=== PATIENT | male | born 1955 | race Hispanic/Latino ===

== ENCOUNTER 2021-02-22 20:39 | Inpatient (IN) | payer MEDICAID ==
--- NOTE | 2021-02-22 21:11 | Emergency Department Report ---
ED General Adult HPI - General Chief complaint: Alcohol Stated complaint: ETOH Time Seen by Provider: 02/22/21 21:05 Source: patient, EMS ( EMS documentation not available at time of chart dictation ), RN notes reviewed Mode of arrival: Stretcher Limitations: Altered Mental Status, Other (Alcohol intoxication) - History of Present Illness Initial comments: The patient was evaluated in the emergency department for symptoms described in the history of present illness. He/she was evaluated in the context of the global COVID-19 pandemic, which necessitated consideration that the patient might be at risk for infection with the virus that causes COVID-19. Institutional protocols and algorithms that pertain to the evaluation of patients at risk for COVID-19 are in a state of rapid change based on information released by regulatory bodies including the CDC and federal and state organizations. These policies and algorithms were followed during the patient's care in the emergency department. Please note that these policies, procedures and recommendations changed on a rapid basis. Mr. Herrera is a 65-year-old gentleman. The details of his past medical history not known to myself. History is obtained from nursing team, who obtained report from EMS. EMS documentation is unavailable at this time for my review. The patient is brought to the hospital by emergency medical services, with an EMS articulated complaint to nursing team of alcohol intoxication. The patient himself is intoxicated. He tells me that he has abdominal pain, and chest pressure. He is not able to describe the qualitative nature of her symptoms, exacerbating factors, relieving factors or aggravating factors. He is not sure if he fell or hit his head. The patient is not accompanied by friends or family at this time for collateral information or additional information. EMS provided a phone number to nursing team; [phone]. Call this number, and it is disconnected. The patient is not accompanied by friends or family at this time for collateral information or additional information. He is currently intoxicated, and cannot further elaborate on the nature of his symptoms. His last known well time is not explicitly known. The patient indicates that he is not homicidal or suicidal. -: unknown Location: chest, abdomen Consistency: other Improves with: other Worsens with: other Associated Symptoms: other - Related Data Home Medications Medication Instructions Recorded Confirmed Last Taken Methadone HCl [Methadone Intensol] 30 mg PO QDAY 02/23/21 02/23/21 02/22/21 Previous Rx's Medication Instructions Recorded Last Taken Type AtorvaSTATin [Lipitor] 40 mg PO QHS #30 02/25/21 Unknown Rx FLUoxetine HCL [Fluoxetine HCl] 10 mg PO QDAY #30 cap 02/25/21 Unknown Rx Furosemide [Lasix TAB] 40 mg PO QDAY #30 02/25/21 Unknown Rx Methadone [Dolophine] 30 mg PO DAILY #5 tablet 02/25/21 Unknown Rx Metoprolol Xl [Metoprolol 100 mg PO QDAY #30 02/25/21 Unknown Rx SUCCINATE ER TAB] Tamsulosin [Flomax] 0.4 mg PO QDAY #30 cap 02/25/21 Unknown Rx chlordiazePOXIDE [Librium] 25 mg PO HS #42 cap 02/25/21 Unknown Rx Allergies Allergy/AdvReac Type Severity Reaction Status Date / Time No Known Allergies Allergy Verified 02/22/21 20:53 ED Review of Systems ROS: Stated complaint: ETOH Other details as noted in HPI Comment: Unobtainable due to pts medical conditions Gastrointestinal: abdominal pain ED Past Medical Hx - Past Medical History Hx Hypertension: Yes Additional medical history: heart murmur, alcohol abuse - Medications Home Medications: Home Medications Medication Instructions Recorded Confirmed Last Taken Type Methadone HCl [Methadone Intensol] 30 mg PO QDAY 02/23/21 02/23/21 02/22/21 History AtorvaSTATin [Lipitor] 40 mg PO QHS #30 02/25/21 Unknown Rx FLUoxetine HCL [Fluoxetine HCl] 10 mg PO QDAY #30 cap 02/25/21 Unknown Rx Furosemide [Lasix TAB] 40 mg PO QDAY #30 02/25/21 Unknown Rx Methadone [Dolophine] 30 mg PO DAILY #5 tablet 02/25/21 Unknown Rx Metoprolol Xl [Metoprolol 100 mg PO QDAY #30 02/25/21 Unknown Rx SUCCINATE ER TAB] Tamsulosin [Flomax] 0.4 mg PO QDAY #30 cap 02/25/21 Unknown Rx chlordiazePOXIDE [Librium] 25 mg PO HS #42 cap 02/25/21 Unknown Rx ED Physical Exam - General Limitations: Altered Mental Status General appearance: appears intoxicated, obese - Head Head exam: Present: atraumatic, normocephalic - Eye Eye exam: Present: normal appearance, EOMI. Absent: nystagmus - ENT ENT exam: Present: normal exam, normal orophraynx, mucous membranes moist, normal external ear exam - Neck Neck exam: Present: normal inspection, full ROM. Absent: tenderness, meningismus - Respiratory Respiratory exam: Present: normal lung sounds bilaterally. Absent: respiratory distress, wheezes, rales, rhonchi, stridor, decreased breath sounds - Cardiovascular Cardiovascular Exam: Present: regular rate, normal rhythm, normal heart sounds. Absent: bradycardia, tachycardia, irregular rhythm, systolic murmur, diastolic murmur, rubs, gallop - GI/Abdominal GI/Abdominal exam: Present: soft, tenderness, other (There is epigastric tenderness.). Absent: distended, guarding, rebound, rigid, pulsatile mass - Rectal Rectal exam: Present: deferred - Extremities Exam Extremities exam: Present: normal inspection, full ROM, other (2+ pulses noted in the bilateral upper and lower extremities. There is no palpable cord. negative Homans sign. Muscular compartments are soft. The pelvis is stable.). Absent: pedal edema, calf tenderness - Back Exam Back exam: Present: normal inspection, full ROM. Absent: tenderness, CVA tenderness (R), CVA tenderness (L), paraspinal tenderness, vertebral tenderness - Neurological Exam Neurological exam: Present: altered, other (There is no facial droop. The tongue is midline. EOMI. 5 out of 5 strength in 4 extremities. Sensation is intact to light touch in 4 extremities.) - Psychiatric Psychiatric exam: Absent: homicidal ideation, suicidal ideation - Skin Skin exam: Present: warm, dry, intact, normal color. Absent: rash ED Course Vital Signs 02/22/21 02/22/21 02/22/21 20:54 23:23 23:26 Temperature 98.5 F Pulse Rate 77 63 Respiratory 16 15 Rate Blood Pressure Blood Pressure 120/70 125/63 [Left] O2 Sat by Pulse 92 98 98 Oximetry 02/22/21 02/22/21 02/22/21 23:27 23:29 23:31 Temperature Pulse Rate 63 62 68 Respiratory 13 17 18 Rate Blood Pressure 125/63 125/63 125/63 Blood Pressure [Left] O2 Sat by Pulse Oximetry 02/23/21 02/23/21 02/23/21 00:01 00:31 01:11 Temperature Pulse Rate 85 88 74 Respiratory 18 18 18 Rate Blood Pressure 114/54 114/54 114/54 Blood Pressure [Left] O2 Sat by Pulse Oximetry 02/23/21 02/23/21 02/23/21 01:41 02:01 02:31 Temperature Pulse Rate 80 64 66 Respiratory 11 L 16 13 Rate Blood Pressure 131/53 137/49 Blood Pressure [Left] O2 Sat by Pulse 98 97 98 Oximetry 02/23/21 02/23/21 02/23/21 03:01 03:31 04:01 Temperature Pulse Rate 81 Respiratory 29 H 36 H 19 Rate Blood Pressure 123/51 140/67 121/50 Blood Pressure [Left] O2 Sat by Pulse 99 95 96 Oximetry 02/23/21 02/23/21 02/23/21 05:01 05:14 05:30 Temperature Pulse Rate 74 Respiratory 16 Rate Blood Pressure 124/47 124/47 Blood Pressure 124/47 [Left] O2 Sat by Pulse 97 95 94 Oximetry 02/23/21 02/23/21 02/23/21 05:48 06:01 07:38 Temperature Pulse Rate Respiratory Rate Blood Pressure 128/49 128/49 139/65 Blood Pressure [Left] O2 Sat by Pulse Oximetry 02/23/21 02/23/21 02/23/21 07:40 07:41 07:51 Temperature Pulse Rate 74 Respiratory 16 Rate Blood Pressure 139/65 139/88 Blood Pressure 139/65 [Left] O2 Sat by Pulse 96 96 97 Oximetry 02/23/21 02/23/21 02/23/21 08:00 08:37 08:41 Temperature Pulse Rate Respiratory Rate Blood Pressure 139/65 139/88 139/88 Blood Pressure [Left] O2 Sat by Pulse 95 93 94 Oximetry 02/23/21 02/23/21 02/23/21 08:51 09:00 09:16 Temperature Pulse Rate Respiratory Rate Blood Pressure 128/49 139/88 139/88 Blood Pressure [Left] O2 Sat by Pulse 98 93 82 L Oximetry - Reevaluation(s) Reevaluation #1: 02/23/21 00:54 Differential diagnosis, including but not limited to: Alcohol intoxication, intracranial injury, cervical spine injury, dehydration, electrolyte derangement, dementia, GERD, gastritis, hiatal hernia, pneumonia, coronary artery disease, pancreatitis colitis, diverticulitis, renal colic Assessment and plan: 65-year-old gentleman, who was afebrile, with reassuring vital signs, who is obviously intoxicated, initially resting comfortably on his side, not in any acute distress. Patient is a poor historian, initially complaining of chest discomfort, which is poorly characterized, and admits to some abdominal pain. A few hours later, he is resting comfortably, and denies any physical pain. Initial laboratory studies are significant for mild dehydration/hypernatremia, hypokalemia, and elevated blood alcohol level. When I requestion the patient, he states he is not having any physical pain. Called up listed phone number, however, the number is disconnected. At this point time, were not able to obtain collateral information, such as the details of the patient's past medical history, or current medications. We will obtain CT scan of the brain and cervical spine, CT scan of the abdomen pelvis. We will obtain urinalysis, repeat troponin, repeat EKG. We will replete the patient's potassium. Anticipate that the patient should be sober in a few hours, and hopefully be able to obtain more information. Reevaluation #2: 02/23/21 00:56 The patient is not currently tachycardic, tachypneic or hypoxic, I do not have a high suspicion for pulmonary embolism or thromboembolism at this time. 02/23/21 01:23 EKG #2 interpreted at 01: 1 3 Motion artifact, sinus rhythm, rate 64 bpm. Normal axis, QTC 446 ms. Abnormal EKG. Not a STEMI 02/23/21 04:25 Patient now more awake and alert. He tells me that he is from [facility]. He is able to provide me with some of his medications. It appears that he has a history of hypertension, high cholesterol, tobacco use. He also takes Eliquis, and he reports that he has a history of "blood clot in the gage ngs." He also smokes tobacco. In addition, nursing team has noted that he is somewhat hypoxic occasionally, requiring supplemental oxygen. Nuclear medicine study ordered. He will be admitted to the medical service for further evaluation for chest pain, hypoxia, alcohol intoxication, hypokalemia, and supportive care. Defer to the inpatient team to follow-up on nuclear medicine study. Dr Daryl Oseguera to admit to IMS 02/23/21 04:26 02/23/21 04:58 02/26/21 19:41 My colleague graciously followed up on CT scans. The patient was admitted. ED Medical Decision Making - Lab Data Result diagrams: 02/24/21 04:40 02/24/21 04:40 Vital Signs 02/22/21 02/22/21 02/22/21 20:54 23:23 23:26 Temperature 98.5 F Pulse Rate 77 63 Respiratory 16 15 Rate Blood Pressure Blood Pressure 120/70 125/63 [Left] O2 Sat by Pulse 92 98 98 Oximetry 02/22/21 02/22/21 02/22/21 23:27 23:29 23:31 Temperature Pulse Rate 63 62 68 Respiratory 13 17 18 Rate Blood Pressure 125/63 125/63 125/63 Blood Pressure [Left] O2 Sat by Pulse Oximetry 02/23/21 02/23/21 00:01 00:31 Temperature Pulse Rate 85 88 Respiratory 18 18 Rate Blood Pressure 114/54 114/54 Blood Pressure [Left] O2 Sat by Pulse Oximetry Lab Results 02/22/21 02/22/21 02/22/21 Range/Units 21:31 21:31 21:31 WBC 5.4 (4.5-11.0) K/mm3 RBC 4.07 (3.65-5.03) M/mm3 Hgb 12.3 (11.8-15.2) gm/dl Hct 36.8 (35.5-45.6) % MCV 90 (84-94) fl MCH 30 (28-32) pg MCHC 33 (32-34) % RDW 21.0 H (13.2-15.2) % Plt Count 161 (140-440) K/mm3 Lymph % (Auto) 30.8 (13.4-35.0) % [place] % (Auto) 6.0 (0.0-7.3) % Eos % (Auto) 3.6 (0.0-4.3) % Baso % (Auto) 0.5 (0.0-1.8) % Lymph # (Auto) 1.7 (1.2-5.4) K/mm3 [place] # (Auto) 0.3 (0.0-0.8) K/mm3 Eos # (Auto) 0.2 (0.0-0.4) K/mm3 Baso # (Auto) 0.0 (0.0-0.1) K/mm3 Seg Neutrophils % 59.1 (40.0-70.0) % Seg Neutrophils # 3.2 (1.8-7.7) K/mm3 PT 13.4 (12.2-14.9) Sec. INR 0.92 (0.87-1.13) Sodium 146 H (137-145) mmol/L Potassium 3.3 L (3.6-5.0) mmol/L Chloride 106.0 (98-107) mmol/L Carbon Dioxide 30 (22-30) mmol/L Anion Gap 13 mmol/L BUN 8 L (9-20) mg/dL Creatinine 0.6 L (0.8-1.3) mg/dL Estimated GFR > 60 ml/min BUN/Creatinine Ratio 13 % Glucose 101 H (75-100) mg/dL Calcium 8.1 L (8.4-10.2) mg/dL Magnesium (1.7-2.3) mg/dL Total Bilirubin 0.40 (0.1-1.2) mg/dL AST 32 (5-40) units/L ALT 26 (7-56) units/L Alkaline Phosphatase 77 (35-129) units/L Total Creatine Kinase (55-170) units/L Troponin T < 0.010 (0.00-0.029) ng/mL Total Protein 6.1 L (6.3-8.2) g/dL Albumin 3.3 L (3.9-5) g/dL Albumin/Globulin Ratio 1.2 % Lipase (13-60) units/L Salicylates (2.8-20.0) mg/dL Acetaminophen (10.0-30.0) ug/mL Plasma/Serum Alcohol (0-0.07) % 02/22/21 02/22/21 02/22/21 Range/Units 21:31 21:31 21:31 WBC (4.5-11.0) K/mm3 RBC (3.65-5.03) M/mm3 Hgb (11.8-15.2) gm/dl Hct (35.5-45.6) % MCV (84-94) fl MCH (28-32) pg MCHC (32-34) % RDW (13.2-15.2) % Plt Count (140-440) K/mm3 Lymph % (Auto) (13.4-35.0) % [place] % (Auto) (0.0-7.3) % Eos % (Auto) (0.0-4.3) % Baso % (Auto) (0.0-1.8) % Lymph # (Auto) (1.2-5.4) K/mm3 [place] # (Auto) (0.0-0.8) K/mm3 Eos # (Auto) (0.0-0.4) K/mm3 Baso # (Auto) (0.0-0.1) K/mm3 Seg Neutrophils % (40.0-70.0) % Seg Neutrophils # (1.8-7.7) K/mm3 PT (12.2-14.9) Sec. INR (0.87-1.13) Sodium (137-145) mmol/L Potassium (3.6-5.0) mmol/L Chloride (98-107) mmol/L Carbon Dioxide (22-30) mmol/L Anion Gap mmol/L BUN (9-20) mg/dL Creatinine (0.8-1.3) mg/dL Estimated GFR ml/min BUN/Creatinine Ratio % Glucose (75-100) mg/dL Calcium (8.4-10.2) mg/dL Magnesium 1.70 (1.7-2.3) mg/dL Total Bilirubin (0.1-1.2) mg/dL AST (5-40) units/L ALT (7-56) units/L Alkaline Phosphatase (35-129) units/L Total Creatine Kinase 65 (55-170) units/L Troponin T (0.00-0.029) ng/mL Total Protein (6.3-8.2) g/dL Albumin (3.9-5) g/dL Albumin/Globulin Ratio % Lipase 21 (13-60) units/L Salicylates < 0.3 L (2.8-20.0) mg/dL Acetaminophen (10.0-30.0) ug/mL Plasma/Serum Alcohol 0.23 H (0-0.07) % 02/22/ Range/Units 21:31 WBC (4.5-11.0) K/mm3 RBC (3.65-5.03) M/mm3 Hgb (11.8-15.2) gm/dl Hct (35.5-45.6) % MCV (84-94) fl MCH (28-32) pg MCHC (32-34) % RDW (13.2-15.2) % Plt Count (140-440) K/mm3 Lymph % (Auto) (13.4-35.0) % [place] % (Auto) (0.0-7.3) % Eos % (Auto) (0.0-4.3) % Baso % (Auto) (0.0-1.8) % Lymph # (Auto) (1.2-5.4) K/mm3 [place] # (Auto) (0.0-0.8) K/mm3 Eos # (Auto) (0.0-0.4) K/mm3 Baso # (Auto) (0.0-0.1) K/mm3 Seg Neutrophils % (40.0-70.0) % Seg Neutrophils # (1.8-7.7) K/mm3 PT (12.2-14.9) Sec. INR (0.87-1.13) Sodium (137-145) mmol/L Potassium (3.6-5.0) mmol/L Chloride (98-107) mmol/L Carbon Dioxide (22-30) mmol/L Anion Gap mmol/L BUN (9-20) mg/dL Creatinine (0.8-1.3) mg/dL Estimated GFR ml/min BUN/Creatinine Ratio % Glucose (75-100) mg/dL Calcium (8.4-10.2) mg/dL Magnesium (1.7-2.3) mg/dL Total Bilirubin (0.1-1.2) mg/dL AST (5-40) units/L ALT (7-56) units/L Alkaline Phosphatase (35-129) units/L Total Creatine Kinase (55-170) units/L Troponin T (0.00-0.029) ng/mL Total Protein (6.3-8.2) g/dL Albumin (3.9-5) g/dL Albumin/Globulin Ratio % Lipase (13-60) units/L Salicylates (2.8-20.0) mg/dL Acetaminophen 5.0 L (10.0-30.0) ug/mL Plasma/Serum Alcohol (0-0.07) % - EKG Data -: EKG Interpreted by Md EKG shows normal: sinus rhythm Rate: normal - EKG Data When compared to previous EKG there are: previous EKG unavailable 02/23/21 00:52 EKG #1 is interpreted at 21: 44 Sinus rhythm, rate 63 bpm. Normal axis. Unable to determine P wave axis secondary to motion artifact in aVR. QTC 4 5 6 ms. Q waves noted in the inferior leads. Left ventricular hypertrophy. This is an abnormal EKG. This is not a STEMI. There is no prior available for comparison. - Radiology Data Radiology results: pending, report reviewed, image reviewed CHEST 1 VIEW 02/22/2021 9:40 PM INDICATION / CLINICAL INFORMATION: Alcohol Intoxication chest pain. COMPARISON: None available. FINDINGS: SUPPORT DEVICES: None. HEART / MEDIASTINUM: No significant abnormality. LUNGS / PLEURA: Mild interstitial prominence suggesting chronic interstitial change No pneumothorax. ADDITIONAL FINDINGS: Old rib irregularities within the right chest wall appear chronic IMPRESSION: 1. Chronic chest wall findings on the right. Mild increased interstitial prominence in bilateral lungs Signer Name: Adrián Torres MD Signed: 02/22/2021 9:43 PM Workstation Name: [email or web address] Critical care attestation.: If time is entered above; I have spent that time in minutes in the direct care of this critically ill patient, excluding procedure time. ED Disposition Clinical Impression: Alcohol intoxication, Abdominal pain, Hypokalemia, Acute chest pain Disposition: 09 ADMITTED INPATIENT Is pt being admited?: Yes Does the pt Need Aspirin: Yes Condition: Good Heart Score - HEART Score History: Slightly suspicious EKG: Non-specific Age: 45-65 Risk factors: > 3 risk factors or hx of atherosclerotic disease (Hypertension, high cholesterol, tobacco user, obesity) Troponin: < normal limit HEART Score: 4 - EKG Read Time Time EKG Completed: 21:44 EKG Read Time: 21:44 - Critical Actions Critical Actions: 4-6 pts:12-16.6% risk of adverse cardiac event. Should be admitted
[2021-02-22] MEDS ORDERED: LORazepam 2 MG/ML VIAL IM PRN (21:19)
[2021-02-22] MEDS ORDERED: FAMOTIDINE 20 MG/2 ML INJ IV ONE (21:19)
[2021-02-22] MEDS ORDERED: LACTATED RINGERS 1,000 ML IV ONE (21:19)
[2021-02-22] MEDS ORDERED: HALOPERIDOL LACTATE 5 MG/1 ML INJ IM PRN (21:19)
[2021-02-22 22:02] LABS: Basophils % (Auto) 0.5 % (0.0-1.8); Eosinophils # (Auto) 0.2 K/mm3 (0.0-0.4); Eosinophils % (Auto) 3.6 % (0.0-4.3); Hematocrit 36.8 % (35.5-45.6); Hemoglobin 12.3 gm/dl (11.8-15.2); Lymphocytes # (Auto) 1.7 K/mm3 (1.2-5.4); Lymphocytes % (Auto) 30.8 % (13.4-35.0); Mean Corpuscular HGB Conc 33 % (32-34); Mean Corpuscular Volume 90 fl (84-94); Monocytes # (Auto) 0.3 K/mm3 (0.0-0.8); Platelet Count 161 K/mm3 (140-440); Red Blood Count 4.07 M/mm3 (3.65-5.03)
[2021-02-22 22:16] LABS: INR 0.92 (0.87-1.13)
[2021-02-22 22:23] LABS: Alanine Aminotransferase 26 units/L (7-56); Albumin 3.3 g/dL (3.9-5); Blood Urea Nitrogen 8 mg/dL (9-20); Calcium 8.1 mg/dL (8.4-10.2); Hemolysis Index 2
[2021-02-22 22:26] LABS: BUN/Creatinine Ratio 13
--- NOTE | 2021-02-22 22:48 | XRay Report ---
CHEST 1 VIEW 02/22/2021 9:40 PM INDICATION / CLINICAL INFORMATION: Alcohol Intoxication chest pain. COMPARISON: None available. FINDINGS: SUPPORT DEVICES: None. HEART / MEDIASTINUM: No significant abnormality. LUNGS / PLEURA: Mild interstitial prominence suggesting chronic interstitial change No pneumothorax. ADDITIONAL FINDINGS: Old rib irregularities within the right chest wall appear chronic IMPRESSION: 1. Chronic chest wall findings on the right. Mild increased interstitial prominence in bilateral lung s Signer Name: Adrián Torres MD Signed: 02/22/2021 10:43 PM Workstation Name: [id number]
[2021-02-23] MEDS ORDERED: POTASSIUM CHLORIDE ER 20 MEQ TAB PO ONE (00:46)
[2021-02-23] MEDS ORDERED: THIAMINE 100 MG, FOLIC ACID 1 MG, MULTIPLE VITAMIN INJ, ADULT 10 ML in SODIUM CHLORIDE ... IV ONE (00:47)
[2021-02-23 01:13] LABS: Bacteria,Urine 1+ /HPF (Negative); Bilirubin,Urine NEG (Negative); Blood,Urine NEG (Negative); Color,Urine Amber (Yellow); Mucus,Urine 1+ /HPF; Protein,Urine <15 mg/dL mg/dL (Negative)
[2021-02-23] MEDS: POTASSIUM CHLORIDE 10 MEQ 10 MEQ/100 ML BAG IV SCH ×4 (01:44→05:14)
[2021-02-23] MEDS ORDERED: ASPIRIN 81 MG TAB CHEW PO ONE (04:27)
[2021-02-23] MEDS ORDERED: ONDANSETRON 4 MG/2 ML INJ IV PRN (04:57)
[2021-02-23] MEDS ORDERED: MAGNESIUM HYDROXIDE (MOM) ORAL LIQD UDC PO PRN (04:57)
[2021-02-23] MEDS ORDERED: NITROGLYCERIN 0.4 MG TAB SUBL SL PRN (04:57)
[2021-02-23] MEDS ORDERED: SENNOSIDES 8.6 MG TAB PO PRN (04:57)
[2021-02-23] MEDS ORDERED: ACETAMINOPHEN 325 MG TAB PO PRN ×2 (04:57)
[2021-02-23] MEDS ORDERED: METOCLOPRAMIDE 10 MG/2 ML INJ IV PRN (04:57)
--- NOTE | 2021-02-23 04:57 | History and Physical Report ---
History of Present Illness Date of examination: 02/23/21 Date of admission: 02/23/21 Chief complaint: chest pain History of present illness: This is a 65-year-old male patient seen in the ED and baseline. The patient is brought to the hospital by emergency medical services, with with chief complaints of chest pain and alcohol intoxication. Patient is confused and not able to describe his symptoms. He is not sure if he fell or hit his head. The patient is not accompanied by friends or family at this time for collateral information or additional information.Chest x-ray done mild increased interstitial prominence in bilateral lungs. Lab work showed low sodium and potassium level. Patient started on banana bag/IV hydration Past History Past Medical History: diabetes, hypertension, hyperlipidemia Past Surgical History: No surgical history Social history: alcohol abuse, full code Family history: no significant family history (Patient is confused unable to assess) Medications and Allergies Allergies Allergy/AdvReac Type Severity Reaction Status Date / Time No Known Allergies Allergy Verified 02/22/21 20:53 Active Meds: Active Medications Haloperidol Lactate (Haloperidol Lactate 5 Mg/1 Ml Inj) 5 mg IM Q6HR PRN PRN Reason: Agitation Potassium Chloride (Kcl 10meq/100ml) 10 meq in 100 mls @ 100 mls/hr IV Q1H CHERISE Stop: 02/23/21 04:59 Last Admin: 02/23/21 03:49 Dose: 100 mls/hr Documented by: Lorazepam (Lorazepam 2 Mg/Ml Vial) 2 mg IM Q4HR PRN PRN Reason: Agitation Review of Systems Constitutional: fatigue, weakness Ears, nose, mouth and throat: no epistaxis, no bleeding gums Cardiovascular: chest pain, high blood pressure Respiratory: cough Gastrointestinal: no BRBPR, no melena Rectal: no itching, no hemorrhoids Integumentary: no rash, no pruritis, no redness Psychiatric: anxiety, confusion Hematologic/Lymphatic: no easy bruising, no easy bleeding, no lymphadenopathy, no lymphedema Allergic/Immunologic: no urticaria Exam - Constitutional Vitals: Temp Pulse Resp BP Pulse Ox 98.5 F 66 13 137/49 98 02/22/21 20:54 02/23/21 02:31 02/23/21 02:31 02/23/21 02:31 02/23/21 02:31 General appearance: Present: mild distress, well-nourished - EENT Eyes: Present: PERRL ENT: hearing intact, clear oral mucosa - Neck Neck: Present: supple, normal ROM - Respiratory Respiratory effort: normal Respiratory: bilateral: CTA - Cardiovascular Heart Sounds: Present: S1 & S2. Absent: rub, click - Extremities Extremities: pulses symmetrical, No edema Peripheral Pulses: within normal limits - Abdominal General gastrointestinal: Present: soft, non-tender, non-distended, normal bowel sounds Male genitourinary: Present: normal - Integumentary Integumentary: Present: clear, warm, dry - Musculoskeletal Musculoskeletal: gait normal, strength equal bilaterally - Psychiatric Psychiatric: appropriate mood/affect, intact judgment & insight, cooperative - Neurologic Neurologic: CNII-XII intact, moves all extremities - Allied Health Allied health notes reviewed: nursing HEART Score - HEART Score EKG: Non-specific Age: 45-65 Risk factors: > 3 risk factors or hx of atherosclerotic disease (Hypertension, high cholesterol, tobacco user, obesity) Troponin: Troponin T < 0.010 ng/mL (0.00-0.029) 02/23/21 01:40 Troponin: < normal limit - Critical Actions Critical Actions: 4-6 pts:12-16.6% risk of adverse cardiac event. Should be admitted Results - Labs CBC & Chem 7: 02/23/21 05:08 02/22/21 21:31 Labs: Abnormal lab results 02/22/21 02/22/21 02/22/21 Range/Units 21:31 21:31 21:31 RDW 21.0 H (13.2-15.2) % Sodium 146 H (137-145) mmol/L Potassium 3.3 L (3.6-5.0) mmol/L BUN 8 L (9-20) mg/dL Creatinine 0.6 L (0.8-1.3) mg/dL Glucose 101 H (75-100) mg/dL Calcium 8.1 L (8.4-10.2) mg/dL Total Protein 6.1 L (6.3-8.2) g/dL Albumin 3.3 L (3.9-5) g/dL Salicylates (2.8-20.0) mg/dL Acetaminophen (10.0-30.0) ug/mL Plasma/Serum Alcohol 0.23 H (0-0.07) % 02/22/21 02/22/21 Range/Units 21:31 21:31 RDW (13.2-15.2) % Sodium (137-145) mmol/L Potassium (3.6-5.0) mmol/L BUN (9-20) mg/dL Creatinine (0.8-1.3) mg/dL Glucose (75-100) mg/dL Calcium (8.4-10.2) mg/dL Total Protein (6.3-8.2) g/dL Albumin (3.9-5) g/dL Salicylates < 0.3 L (2.8-20.0) mg/dL Acetaminophen 5.0 L (10.0-30.0) ug/mL Plasma/Serum Alcohol (0-0.07) % Assessment and Plan - Patient Problems (1) Acute chest pain Current Visit: Yes Status: Acute Plan to address problem: Questionable cause -Troponin negative Monitor cardiac enzymes Chest x-ray showed no acute finding (2) Alcohol intoxication Current Visit: Yes Status: Acute Plan to address problem: Placed on CIWA protocol Ativan as needed Safety and fall precaution at all times Aspiration precaution CT of the head result pending (3) Hypokalemia Current Visit: Yes Status: Acute Plan to address problem: Replace potassium Monitor electrolytes and replace as needed (4) D-dimer, elevated Current Visit: Yes Status: Acute Plan to address problem: Check CT of the chestrule out PE Patient came with chest pain (5) DVT prophylaxis Current Visit: Yes Status: Acute
[2021-02-23] MEDS ORDERED: SODIUM CHLORIDE 0.9% 1000 ML 1,000 ML IV SCH (05:00)
[2021-02-23 05:33] LABS: Basophils % (Auto) 0.5 % (0.0-1.8); Eosinophils # (Auto) 0.2 K/mm3 (0.0-0.4); Eosinophils % (Auto) 3.6 % (0.0-4.3); Hematocrit 35.2 % (35.5-45.6); Hemoglobin 11.4 gm/dl (11.8-15.2); Lymphocytes # (Auto) 1.4 K/mm3 (1.2-5.4); Lymphocytes % (Auto) 30.6 % (13.4-35.0); Mean Corpuscular HGB Conc 32 % (32-34); Mean Corpuscular Volume 91 fl (84-94); Monocytes # (Auto) 0.3 K/mm3 (0.0-0.8); Monocytes % (Auto) 5.8 % (0.0-7.3); Platelet Count 152 K/mm3 (140-440); Red Blood Count 3.87 M/mm3 (3.65-5.03)
[2021-02-23 05:39] LABS: Red Cell Distribution Width 20.7 % (13.2-15.2)
[2021-02-23] MEDS ORDERED: HALOPERIDOL LACTATE 5 MG/1 ML INJ IV PRN (06:57)
[2021-02-23] MEDS ORDERED: LORazepam 2 MG/ML VIAL IV PRN ×3 (07:00)
--- NOTE | 2021-02-23 07:10 | Nuclear Medicine Report ---
Perfusion only scan INDICATION: History of PTE 3 weeks prior FINDINGS: 5.5 mCi of technetium 99m MAA was administered for examination. Perfusion artifact is seen within the right lower lung however this corresponds to elevation right hemidiaphragm. Questionable p erfusional defect in the peripheral aspect of the right upper lung on posterior views corresponding t o multiple rib abnormalities. IMPRESSION: Matched defects on perfusion and chest x-ray place patient in the low probability for PTE. There is e levation right hemidiaphragm identified. Patient did have history of PE 3 weeks prior. Signer Name: Adrián Torres MD Signed: 02/23/2021 7:05 AM Workstation Name: [id number]
[2021-02-23] MEDS: 1: FOLIC ACID 1 MG, MULTIPLE VITAMIN INJ, ADULT 10 ML, THIAMINE 100 MG in SODIUM CHLORID IV SCH ×2 (07:38→17:34)
--- NOTE | 2021-02-23 08:49 | Cat Scan Report ---
CT head/brain wo con INDICATION: Alcohol Intoxication. TECHNIQUE: Routine CT head without contrast. All CT scans at this location are performed using CT dose reduction for ALARA by means of automated exposure control. COMPARISON: None. FINDINGS: BRAIN / INTRACRANIAL CONTENTS: There is a tiny subdural hematoma along the left tentorium leaflet, me asuring no more than about 3 mm in greatest dimension, best seen on coronal reformats. There is also a trace subarachnoid hemorrhage over the left frontal convexity adjacent to the left precentral gyrus .. CALVARIUM/SKULL BASE/CRANIOCERVICAL JUNCTION: No evidence of fracture. ORBITS: No significant abnormality of visualized orbits. SINUSES / MASTOIDS: No significant abnormality of visualized sinuses and mastoid air cells. ADDITIONAL FINDINGS: None. IMPRESSION: 1. Trace subdural hemorrhage over the left tentorium leaflet and trace subarachnoid hemorrhage over t he left frontal convexity without brain edema or adverse mass effect. 2. Findings discussed with Dr. Zayas at 7:44 AM central time. Signer Name: Byron Mendez MD Signed: 02/23/2021 8:44 AM Workstation Name: [id number]
--- NOTE | 2021-02-23 08:49 | Cat Scan Report ---
CT CERVICAL SPINE WITHOUT CONTRAST INDICATION: Alcohol Intoxication. TECHNIQUE: Axial CT images of the spine were obtained. Sagittal and coronal reformatted images were produced. Al l CT scans at this location are performed using CT dose reduction for ALARA by means of automated exp osure control. COMPARISON: None available. FINDINGS: ACUTE FRACTURE(S) OR SUBLUXATION: None. SPINAL DEGENERATIVE CHANGES: There is mild degenerative disc disease at C5-6 and C6-7 and there is mi ld DJD in the atlantodental articulation. PARASPINAL SOFT TISSUES: No soft tissue swelling or other acute abnormalities. ADDITIONAL FINDINGS: No significant additional findings. IMPRESSION: 1. No acute fracture or subluxation in the spine in neutral position. Signer Name: Byron Mendez MD Signed: 02/23/2021 8:45 AM Workstation Name: [id number]
--- NOTE | 2021-02-23 09:02 | Cat Scan Report ---
CT chest with contrast INDICATION : Shortness of breath, elevated d-dimer. TECHNIQUE: 100 mL of intravenous contrast administered. All CT scans at this location are performed using CT dose reduction for ALARA by means of automated exposure control. COMPARISON: 02/23/2021, 02/22/2021. FINDINGS: Lungs are clear without evidence of focal pulmonary consolidation or edema. Suboptimal opacification of the pulmonary arteries limits evaluation for pulmonary embolism. Within t hese limitations, there is no evidence of central or lobar filling defect to suggest the presence of pulmonary embolism. No discrete pulmonary mass or nodule. No pleural effusion or pneumothorax. Heart is within normal limits in terms of size. No evidence of pericardial effusion. No mediastinal o r axillary lymphadenopathy. Osseous structures show no evidence acute fracture or aggressive osseous destructive lesion. Remote h ealed fracture of the left clavicle and multiple bilateral ribs. Mild bilateral gynecomastia is incidentally noted. There is asymmetric elevation of the right hemidia phragm with right basilar scarring. Please see dedicated CT of the abdomen and pelvis for findings below the level of the diaphragm. IMPRESSION: No evidence of central or lobar filling defect to suggest the presence of pulmonary embolism. Subopti mal opacification of the pulmonary arteries does limit evaluation of more distal emboli. No acute findings in the chest. Asymmetric elevation of the right hemidiaphragm with right basilar scarring. Signer Name: Keith Johnson MD Signed: 02/23/2021 8:57 AM Workstation Name: [id number]
--- NOTE | 2021-02-23 09:19 | Cat Scan Report ---
CT ABDOMEN AND PELVIS WITH CONTRAST INDICATION / CLINICAL INFORMATION: E.T.O.H. intoxication, abd pain 100 ml omni 300. TECHNIQUE: Axial CT images were obtained through the abdomen and pelvis after 100 cc of Omnipaque [address] scans at this location are performed using CT dose reduction for ALARA by means of automated exposure control. COMPARISON: None available. FINDINGS: LOWER CHEST: There is elevation of the right hemidiaphragm. LIVER: There is fatty infiltration of the liver. GALLBLADDER: No significant abnormality. BILE DUCTS: There is dilatation of the common bile duct. Common bile duct measures approximately 9 mm in diameter. There is no intrahepatic biliary dilatation. PANCREAS: No significant abnormality. SPLEEN: Spleen is upper limits of normal in size. No focal splenic lesions are seen. ADRENALS: Calcifications are noted in the right adrenal gland. There is a 1.8 cm right adrenal nodule . RIGHT KIDNEY / URETER: No significant abnormality. LEFT KIDNEY / URETER: No significant abnormality. STOMACH / SMALL BOWEL: No significant abnormality. COLON: No significant abnormality. APPENDIX: No significant abnormality. PERITONEUM: No free fluid. No free air. No fluid collection. LYMPH NODES: No significant adenopathy. AORTA / ARTERIES: Mild atherosclerotic calcification without acute abnormality. There is more promine nt atherosclerotic calcification in the proximal right renal artery. IVC / VEINS: No significant abnormality. URINARY BLADDER: No significant abnormality. REPRODUCTIVE ORGANS: No significant abnormality. ADDITIONAL FINDINGS: None. SKELETAL SYSTEM: No acute abnormality IMPRESSION: 1. There is no obstruction, inflammation, or free air. 2. There is fatty infiltration of the liver. 3. There is dilatation of the common bile duct. The cause is not determined by this exam. 4. There is a 1.8 cm right adrenal nodule. There are calcifications noted in the right adrenal gland. 5. There is relatively dense prominent atherosclerotic calcification in the proximal right renal marta ry. This is likely hemodynamically significant. Signer Name: Torito Ness MD Signed: 02/23/2021 9:15 AM Workstation Name: [id number]
--- NOTE | 2021-02-23 09:29 | Event Note ---
Date: 02/23/21 I was called by the radiologist following the CT scan of the brain order on Mr. Herrera by my colleague Dr. Vera. CT scan of the brain showed trace subdural hematoma over the left tentorium. Patient examined by me. Patient is alert, oriented x3 in no acute distress. GCS is 15. Patient is already being admitted to the hospital. I discussed the patient with Dr. Florentino Salinas, neurosurgeon on-call. He advised to order a CT scan of the brain in 6-hour from the initial 1 and he will evaluate the patient. I discussed the patient with Dr. Morgan, hospitalist following the patient.
--- NOTE | 2021-02-23 11:11 | Event Note ---
Date: 02/23/21 This is a follow-up from an admission earlier this morning. Patient seen and examined. We will continue to plan as outlined in H&P. Total visit time equals 32 minutes with greater than 50% spent on coordination of care and counseling.
--- NOTE | 2021-02-23 11:52 | Consultation ---
History of Present Illness Consult date: 02/23/21 Consult reason: chest pain History of present illness: This is a 65-year old male who was brought to this hospital with abdominal pain and alcohol intoxication. On presentation his alcohol level was 0.23. In addition, there was also report of chest pain, thus this cardiac consultation. Currently, the patient is resting in bed and denies chest pain. He denies unusual shortness of breath and palpitations. Laboratory measurement shows hypokalemia and elevated d-dimer. Serial troponin measurements were normal. An ECG is sinus rhythm with underlying artifact. Patient denies a prior cardiac history. He reports recently hospitalized at an outside hospital 3 weeks ago with acute pulmonary embolism. He takes Eliquis for oral anticoagulation. A follow up VQ scan this presentation reports low probability for PE. However, a head CT scan done reports a trace subdural hematoma. Eliquis was placed on hold and neurology consultation is pending. Past History Past Medical History: diabetes, hypertension, hyperlipidemia Past Surgical History: No surgical history Social history: alcohol abuse, full code Family history: no significant family history (Patient is confused unable to assess) Medications and Allergies Allergies Allergy/AdvReac Type Severity Reaction Status Date / Time No Known Allergies Allergy Verified 02/22/21 20:53 Home Medications Medication Instructions Recorded Confirmed Last Taken Type Apixaban [Eliquis] 5 mg PO BID 02/23/21 02/23/21 02/22/21 History Aspirin [Adult Aspirin] 81 mg PO QDAY 02/23/21 02/23/21 02/22/21 History AtorvaSTATin [Lipitor] 40 mg PO QHS 02/23/21 02/23/21 02/22/21 History FLUoxetine HCL [Fluoxetine HCl] 10 mg PO QDAY 02/23/21 02/23/21 Unknown History Furosemide [Lasix TAB] 40 mg PO QDAY 02/23/21 02/23/21 Unknown History Ibuprofen [Ibu-200] 200 mg PO PRN PRN 02/23/21 02/23/21 02/19/21 History Methadone HCl [Methadone Intensol] 30 mg PO QDAY 02/23/21 02/23/21 02/22/21 History Metoprolol Xl [Metoprolol 100 mg PO QDAY 02/23/21 02/23/21 02/22/21 History SUCCINATE ER TAB] Ondansetron [Zofran Odt] 4 mg PO Q8HR PRN 02/23/21 02/23/21 02/18/21 History Oxymetazoline HCl [12 Hour Nasal 1 spray NS HS 02/23/21 02/23/21 02/22/21 History Relief] Tamsulosin [Flomax] 0.4 mg PO QDAY 02/23/21 02/23/21 02/22/21 History chlordiazePOXIDE [Librium] 25 mg PO HS 02/23/21 02/23/21 Unknown History Active Meds: Active Medications Acetaminophen (Acetaminophen 325 Mg Tab) 650 mg PO Q4H PRN PRN Reason: Pain MILD(1-3)/Fever >100.5/ISAACS Aspirin (Aspirin Ec 325 Mg Tab) 325 mg PO QDAY [facility] Atorvastatin Calcium (Atorvastatin 40 Mg Tab) 40 mg PO QHS [facility] Haloperidol Lactate (Haloperidol Lactate 5 Mg/1 Ml Inj) 5 mg IM Q6HR PRN PRN Reason: Agitation Haloperidol Lactate (Haloperidol Lactate 5 Mg/1 Ml Inj) 5 mg IV Q1H PRN PRN Reason: Unrespon. to mult. doses BZD's Sodium Chloride (Nacl 0.9% 1000 Ml) 1,000 mls @ 42 mls/hr IV DIRECT CHERISE Folic Acid 1 mg/ Multivitamins /Minerals 10 ml/ Thiamine HCl 100 mg/ Sodium Chloride 1,000 mls @ 125 mls/hr IV .BY DURATION [facility] Last Admin: 02/23/21 07:38 Dose: 125 mls/hr Documented by: Sodium Chloride (Nacl 0.9% 1000 Ml) 1,000 mls @ 125 mls/hr IV .BY DURATION [facility] Lorazepam (Lorazepam 2 Mg/Ml Vial) 2 mg IV Q1H PRN PRN Reason: CIWA-Ar 8-15 Lorazepam (Lorazepam 2 Mg/Ml Vial) 4 mg IV Q15MIN PRN PRN Reason: CIWA-Ar >25 Lorazepam (Lorazepam 2 Mg/Ml Vial) 4 mg IV Q1H PRN PRN Reason: CIWA-Ar 16-25 Magnesium Hydroxide (Magnesium Hydroxide (Mom) Oral Liqd Udc) 30 ml PO Q4H PRN PRN Reason: Constipation Metoclopramide HCl (Metoclopramide 10 Mg/2 Ml Inj) 10 mg IV Q6H PRN PRN Reason: Nausea And Vomiting Nitroglycerin (Nitroglycerin 0.4 Mg Tab Subl) 0.4 mg SL Q5M PRN PRN Reason: Chest Pain Ondansetron HCl (Ondansetron 4 Mg/2 Ml Inj) 4 mg IV Q8H PRN PRN Reason: Nausea And Vomiting Oxycodone/Acetaminophen (Oxycodone /Acetaminophen 5-325mg Tab) 1 tab PO Q6H PRN PRN Reason: Pain, Moderate (4-6) Senna (Sennosides 8.6 Mg Tab) 8.6 mg PO Q12HR PRN PRN Reason: Constipation Sodium Chloride (Sodium Chloride 0.9% 10 Ml Flush Syringe) 10 ml IV BID CHERISE Last Admin: 02/23/21 11:44 Dose: 10 ml Documented by: Sodium Chloride (Sodium Chloride 0.9% 10 Ml Flush Syringe) 10 ml IV PRN PRN PRN Reason: LINE FLUSH Tramadol HCl (Tramadol 50 Mg Tab) 50 mg PO Q6H PRN PRN Reason: Pain, Moderate (4-6) Review of Systems Cardiovascular: no chest pain, no palpitations, no shortness of breath Physical Examination Vital Signs Temp Pulse Resp BP Pulse Ox 98.5 F 77 16 120/70 92 02/22/21 20:54 02/22/21 20:54 02/22/21 20:54 02/22/21 20:54 02/22/21 20:54 General appearance: no acute distress HEENT: Positive: PERRL Neck: Positive: trachea midline Cardiac: Positive: Reg Rate and Rhythm Lungs: Positive: Decreased Breath Sounds Neuro: Positive: Grossly Intact Results 02/23/21 05:08 02/22/21 21:31 Cardiac Enzymes 02/22/21 Range/Units 21:31 AST 32 (5-40) units/L Coagulation 02/22/21 Range/Units 21:31 PT 13.4 (12.2-14.9) Sec. INR 0.92 (0.87-1.13) CBC 02/22/21 02/23/21 Range/Units 21:31 05:08 WBC 5.4 4.5 (4.5-11.0) K/mm3 RBC 4.07 3.87 (3.65-5.03) M/mm3 Hgb 12.3 11.4 L (11.8-15.2) gm/dl Hct 36.8 35.2 L (35.5-45.6) % Plt Count 161 152 (140-440) K/mm3 Lymph # (Auto) 1.7 1.4 (1.2-5.4) K/mm3 Love # (Auto) 0.3 0.3 (0.0-0.8) K/mm3 Eos # (Auto) 0.2 0.2 (0.0-0.4) K/mm3 Baso # (Auto) 0.0 0.0 (0.0-0.1) K/mm3 Comprehensive Metabolic Panel 02/22/21 Range/Units 21:31 Sodium 146 H (137-145) mmol/L Potassium 3.3 L (3.6-5.0) mmol/L Chloride 106.0 (98-107) mmol/L Carbon Dioxide 30 (22-30) mmol/L BUN 8 L (9-20) mg/dL Creatinine 0.6 L (0.8-1.3) mg/dL Glucose 101 H (75-100) mg/dL Calcium 8.1 L (8.4-10.2) mg/dL AST 32 (5-40) units/L ALT 26 (7-56) units/L Alkaline Phosphatase 77 (35-129) units/L Total Protein 6.1 L (6.3-8.2) g/dL Albumin 3.3 L (3.9-5) g/dL
--- NOTE | 2021-02-23 13:52 | Event Note ---
Date: 02/23/21 CT scan reviewed- stable trace tentorial SDH without mass effect or MLS. There is no indication for surgical intervention. Full consult note to follow.
--- NOTE | 2021-02-23 17:19 | Cat Scan Report ---
CT head/brain wo con INDICATION: SDH. TECHNIQUE: All CT scans at this location are performed using CT dose reduction for ALARA by means of automated e xposure control. COMPARISON: Head CT done earlier today FINDINGS: There is a stable trace subdural hematoma over the left tentorium and stable trace subarachnoid hemor rhage over the left frontal convexity. There is no brain edema or adverse mass effect. IMPRESSION: 1. Stable trace subdural hemorrhage over the left tentorium and trace subarachnoid hemorrhage over th e left cerebral convexity without adverse change from prior. Signer Name: Byron Mendez MD Signed: 02/23/2021 5:14 PM Workstation Name: [id number]
--- NOTE | 2021-02-23 19:13 | Electrocardiograph Report ---
[facility] Test Date: 2021-02-22 Test Time: 21:44:43 Pat Name: VIVIANA NIEVES Department: Room: A472 1 Gender: M [employer] Mark[employer]: JACE : 1955 Requested By: SIRENA TRINIDAD Order Number: [id number] Reading MD: Carina Finney Measurements Intervals [place] Rate: 63 P: 0 VA: 77 QRS: 71 QRSD: 112 T: -4 QT: 446 QTc: 456 Interpretive Statements Sinus rhythm Possible inferior infarct, old No previous ECG available for comparison Electronically Signed On 02-23-2021 19:13:20 EDT by Carina Finney
--- NOTE | 2021-02-23 19:16 | Electrocardiograph Report ---
[facility] Test Date: 2021-02-23 Test Time: 01:13:29 Pat Name: VIVIANA NIEVES Department: Room: A472 1 Gender: M [employer]: NURSE : 1955 Requested By: SIRENA TRINIDAD Order Number: [id number] Reading MD: Carina Finney Measurements Intervals [place] Rate: 64 P: 79 [place]: 70 QRS: 61 QRSD: 113 T: 45 QT: 431 QTc: 446 Interpretive Statements Sinus rhythm Very poor quality ECG No previous ECG available for comparison Electronically Signed On 02-23-2021 19:15:51 EDT by Carina Finney
[2021-02-24] MEDS: 1: FOLIC ACID 1 MG, MULTIPLE VITAMIN INJ, ADULT 10 ML, THIAMINE 100 MG in SODIUM CHLORID IV SCH ×3 (00:59→18:10)
[2021-02-24 06:08] LABS: Basophils % (Auto) 0.4 % (0.0-1.8); Eosinophils # (Auto) 0.2 K/mm3 (0.0-0.4); Eosinophils % (Auto) 2.9 % (0.0-4.3); Hematocrit 35.7 % (35.5-45.6); Hemoglobin 11.4 gm/dl (11.8-15.2); Lymphocytes % (Auto) 18.4 % (13.4-35.0); Mean Corpuscular HGB Conc 32 % (32-34); Mean Corpuscular Volume 91 fl (84-94); Monocytes # (Auto) 0.4 K/mm3 (0.0-0.8); Monocytes % (Auto) 6.5 % (0.0-7.3); Platelet Count 148 K/mm3 (140-440); Red Blood Count 3.95 M/mm3 (3.65-5.03)
[2021-02-24 06:24] LABS: Alanine Aminotransferase 19 units/L (7-56); Albumin 3.1 g/dL (3.9-5); Blood Urea Nitrogen 6 mg/dL (9-20); Calcium 8.4 mg/dL (8.4-10.2); Hemolysis Index 3
[2021-02-24 06:29] LABS: BUN/Creatinine Ratio 12; Red Cell Distribution Width 21.5 % (13.2-15.2)
[2021-02-24] MEDS: oxyCODONE /ACETAMINOPHEN 5-325MG TAB PO PRN ×2 (09:33→19:06)
[2021-02-24] MEDS: ASPIRIN EC 325 MG TAB PO SCH (09:35)
--- NOTE | 2021-02-24 10:40 | Consultation ---
History of Present Illness Consult date: 02/24/21 Requesting physician: XIMENA CASTILLO Reason for consult: pulmonary embolism History of present illness: 65 y/o male with prior history of PE on anticoagulation admitted with subdural hematoma. Cardiology requested IMS to consult pulm as they did not feel that he is a candidate for oral anticoagulation any more given intracranial bleeding. Past History Past Medical History: diabetes, hypertension, hyperlipidemia Past Surgical History: No surgical history Social history: alcohol abuse, full code Family history: no significant family history (Patient is confused unable to assess) Medications and Allergies Allergies Allergy/AdvReac Type Severity Reaction Status Date / Time No Known Allergies Allergy Verified 02/22/21 20:53 Home Medications Medication Instructions Recorded Confirmed Last Taken Type Apixaban [Eliquis] 5 mg PO BID 02/23/21 02/23/21 02/22/21 History Aspirin [Adult Aspirin] 81 mg PO QDAY 02/23/21 02/23/21 02/22/21 History AtorvaSTATin [Lipitor] 40 mg PO QHS 02/23/21 02/23/21 02/22/21 History FLUoxetine HCL [Fluoxetine HCl] 10 mg PO QDAY 02/23/21 02/23/21 Unknown History Furosemide [Lasix TAB] 40 mg PO QDAY 02/23/21 02/23/21 Unknown History Ibuprofen [Ibu-200] 200 mg PO PRN PRN 02/23/21 02/23/21 02/19/21 History Methadone HCl [Methadone Intensol] 30 mg PO QDAY 02/23/21 02/23/21 02/22/21 History Metoprolol Xl [Metoprolol 100 mg PO QDAY 02/23/21 02/23/21 02/22/21 History SUCCINATE ER TAB] Ondansetron [Zofran Odt] 4 mg PO Q8HR PRN 02/23/21 02/23/21 02/18/21 History Oxymetazoline HCl [12 Hour Nasal 1 spray NS HS 02/23/21 02/23/21 02/22/21 History Relief] Tamsulosin [Flomax] 0.4 mg PO QDAY 02/23/21 02/23/21 02/22/21 History chlordiazePOXIDE [Librium] 25 mg PO HS 02/23/21 02/23/21 Unknown History Active Meds: Active Medications Acetaminophen (Acetaminophen 325 Mg Tab) 650 mg PO Q4H PRN PRN Reason: Pain MILD(1-3)/Fever >100.5/ISAACS Aspirin (Aspirin Ec 325 Mg Tab) 325 mg PO QDAY [facility] Last Admin: 02/24/21 09:35 Dose: 325 mg Documented by: Atorvastatin Calcium (Atorvastatin 40 Mg Tab) 40 mg PO QHS [facility] Last Admin: 02/23/21 21:09 Dose: 40 mg Documented by: Haloperidol Lactate (Haloperidol Lactate 5 Mg/1 Ml Inj) 5 mg IM Q6HR PRN PRN Reason: Agitation Haloperidol Lactate (Haloperidol Lactate 5 Mg/1 Ml Inj) 5 mg IV Q1H PRN PRN Reason: Unrespon. to mult. doses BZD's Sodium Chloride (Nacl 0.9% 1000 Ml) 1,000 mls @ 42 mls/hr IV DIRECT [facility] Folic Acid 1 mg/ Multivitamins /Minerals 10 ml/ Thiamine HCl 100 mg/ Sodium Chloride 1,000 mls @ 125 mls/hr IV .BY DURATION [facility] Last Admin: 02/24/21 09:33 Dose: 125 mls/hr Documented by: Sodium Chloride (Nacl 0.9% 1000 Ml) 1,000 mls @ 125 mls/hr IV .BY DURATION [facility] Last Admin: 02/24/21 00:59 Dose: Not Given Documented by: Lorazepam (Lorazepam 2 Mg/Ml Vial) 2 mg IV Q1H PRN PRN Reason: CIWA-Ar 8-15 Lorazepam (Lorazepam 2 Mg/Ml Vial) 4 mg IV Q15MIN PRN PRN Reason: CIWA-Ar >25 Lorazepam (Lorazepam 2 Mg/Ml Vial) 4 mg IV Q1H PRN PRN Reason: CIWA-Ar 16-25 Magnesium Hydroxide (Magnesium Hydroxide (Mom) Oral Liqd Udc) 30 ml PO Q4H PRN PRN Reason: Constipation Metoclopramide HCl (Metoclopramide 10 Mg/2 Ml Inj) 10 mg IV Q6H PRN PRN Reason: Nausea And Vomiting Nitroglycerin (Nitroglycerin 0.4 Mg Tab Subl) 0.4 mg SL Q5M PRN PRN Reason: Chest Pain Ondansetron HCl (Ondansetron 4 Mg/2 Ml Inj) 4 mg IV Q8H PRN PRN Reason: Nausea And Vomiting Oxycodone/Acetaminophen (Oxycodone /Acetaminophen 5-325mg Tab) 1 tab PO Q6H PRN PRN Reason: Pain, Moderate (4-6) Last Admin: 02/24/21 09:33 Dose: 1 tab Documented by: Senna (Sennosides 8.6 Mg Tab) 8.6 mg PO Q12HR PRN PRN Reason: Constipation Sodium Chloride (Sodium Chloride 0.9% 10 Ml Flush Syringe) 10 ml IV BID [facility]ERISE Last Admin: 02/23/21 21:09 Dose: 10 ml Documented by: Sodium Chloride (Sodium Chloride 0.9% 10 Ml Flush Syringe) 10 ml IV PRN PRN PRN Reason: LINE FLUSH Tramadol HCl (Tramadol 50 Mg Tab) 50 mg PO Q6H PRN PRN Reason: Pain, Moderate (4-6) Physical Examination Vital signs: Vital Signs Temp Pulse Resp BP Pulse Ox 98.5 F 77 16 120/70 92 02/22/21 20:54 02/22/21 20:54 02/22/21 20:54 02/22/21 20:54 02/22/21 20:54 Results - Laboratory Findings CBC and BMP: 02/24/21 04:40 02/24/21 04:40 PT/INR, D-dimer PT 13.4 Sec. (12.2-14.9) 02/22/21 21:31 INR 0.92 (0.87-1.13) 02/22/21 21:31 D-Dimer 1153.93 ng/mlDDU (0-234) H 02/23/21 04:45 Abnormal lab findings: Abnormal Labs 02/22/21 02/22/21 02/22/21 21:31 21:31 21:31 Hgb Hct RDW 21.0 H Lymph # (Auto) Seg Neutrophils % D-Dimer Sodium 146 H Potassium 3.3 L BUN 8 L Creatinine 0.6 L Glucose 101 H Calcium 8.1 L Total Protein 6.1 L Albumin 3.3 L Salicylates Acetaminophen Plasma/Serum Alcohol 0.23 H 02/22/21 02/22/21 02/23/21 21:31 21:31 04:45 Hgb Hct RDW Lymph # (Auto) Seg Neutrophils % D-Dimer 1153.93 H Sodium Potassium BUN Creatinine Glucose Calcium Total Protein Albumin Salicylates < 0.3 L Acetaminophen 5.0 L Plasma/Serum Alcohol 02/23/21 02/24/21 02/24/21 05:08 04:40 04:40 Hgb 11.4 L 11.4 L Hct 35.2 L RDW 20.7 H 21.5 H Lymph # (Auto) 1.0 L Seg Neutrophils % 71.8 H D-Dimer Sodium Potassium 3.5 L BUN 6 L Creatinine 0.5 L Glucose Calcium Total Protein 5.5 L Albumin 3.1 L Salicylates Acetaminophen Plasma/Serum Alcohol Assessment and Plan Given recent intracranial bleed, patient is not a candidate for oral anticoagulation. In this setting recommend vascular consult for IVC filter pl acement. Otherwise not further recs pulmonary hall.
--- NOTE | 2021-02-24 11:38 | Consultation ---
History of Present Illness Consult date: 02/24/21 Reason for Consult: Subdural hematoma Chief complaint: Intoxication History of present illness: Robbin Ramos is a 65 y/o M admitted to [facility] for evaluation of intoxication and chest pain. He does not recall the events preceding his presentation He denies headache or pain at this time. CT scan revealed a trace tentorial SDH without mass effect or MLS. Repeat CT scan was stable. Past History Past Medical History: diabetes, hypertension, hyperlipidemia Past Surgical History: No surgical history Social history: alcohol abuse, full code Family history: no significant family history (Patient is confused unable to assess) Medications and Allergies Allergies Allergy/AdvReac Type Severity Reaction Status Date / Time No Known Allergies Allergy Verified 02/22/21 20:53 Home Medications Medication Instructions Recorded Confirmed Last Taken Type Apixaban [Eliquis] 5 mg PO BID 02/23/21 02/23/21 02/22/21 History Aspirin [Adult Aspirin] 81 mg PO QDAY 02/23/21 02/23/21 02/22/21 History AtorvaSTATin [Lipitor] 40 mg PO QHS 02/23/21 02/23/21 02/22/21 History FLUoxetine HCL [Fluoxetine HCl] 10 mg PO QDAY 02/23/21 02/23/21 Unknown History Furosemide [Lasix TAB] 40 mg PO QDAY 02/23/21 02/23/21 Unknown History Ibuprofen [Ibu-200] 200 mg PO PRN PRN 02/23/21 02/23/21 02/19/21 History Methadone HCl [Methadone Intensol] 30 mg PO QDAY 02/23/21 02/23/21 02/22/21 History Metoprolol Xl [Metoprolol 100 mg PO QDAY 02/23/21 02/23/21 02/22/21 History SUCCINATE ER TAB] Ondansetron [Zofran Odt] 4 mg PO Q8HR PRN 02/23/21 02/23/21 02/18/21 History Oxymetazoline HCl [12 Hour Nasal 1 spray NS HS 02/23/21 02/23/21 02/22/21 History Relief] Tamsulosin [Flomax] 0.4 mg PO QDAY 02/23/21 02/23/21 02/22/21 History chlordiazePOXIDE [Librium] 25 mg PO HS 02/23/21 02/23/21 Unknown History Active Meds: Active Medications Acetaminophen (Acetaminophen 325 Mg Tab) 650 mg PO Q4H PRN PRN Reason: Pain MILD(1-3)/Fever >100.5/ISAACS Aspirin (Aspirin Ec 325 Mg Tab) 325 mg PO QDAY [facility] Last Admin: 02/24/21 09:35 Dose: 325 mg Documented by: Atorvastatin Calcium (Atorvastatin 40 Mg Tab) 40 mg PO QHS [facility] Last Admin: 02/23/21 21:09 Dose: 40 mg Documented by: Atorvastatin Calcium (Atorvastatin 40 Mg Tab) 40 mg PO QHS [facility] Chlordiazepoxide HCl (Chlordiazepoxide 25 Mg Cap) 25 mg PO HS [facility] Fluoxetine HCl (Fluoxetine 10 Mg Tab) 10 mg PO QDAY [facility] Furosemide (Furosemide 40 Mg Tab) 40 mg PO QDAY [facility] Haloperidol Lactate (Haloperidol Lactate 5 Mg/1 Ml Inj) 5 mg IM Q6HR PRN PRN Reason: Agitation Haloperidol Lactate (Haloperidol Lactate 5 Mg/1 Ml Inj) 5 mg IV Q1H PRN PRN Reason: Unrespon. to mult. doses BZD's Sodium Chloride (Nacl 0.9% 1000 Ml) 1,000 mls @ 42 mls/hr IV DIRECT [facility] Folic Acid 1 mg/ Multivitamins /Minerals 10 ml/ Thiamine HCl 100 mg/ Sodium Chloride 1,000 mls @ 125 mls/hr IV .BY DURATION [facility] Last Admin: 02/24/21 09:33 Dose: 125 mls/hr Documented by: Sodium Chloride (Nacl 0.9% 1000 Ml) 1,000 mls @ 125 mls/hr IV .BY DURATION [facility] Last Admin: 02/24/21 00:59 Dose: Not Given Documented by: Lorazepam (Lorazepam 2 Mg/Ml Vial) 2 mg IV Q1H PRN PRN Reason: CIWA-Ar 8-15 Lorazepam (Lorazepam 2 Mg/Ml Vial) 4 mg IV Q15MIN PRN PRN Reason: CIWA-Ar >25 Lorazepam (Lorazepam 2 Mg/Ml Vial) 4 mg IV Q1H PRN PRN Reason: CIWA-Ar 16-25 Magnesium Hydroxide (Magnesium Hydroxide (Mom) Oral Liqd Udc) 30 ml PO Q4H PRN PRN Reason: Constipation Metoclopramide HCl (Metoclopramide 10 Mg/2 Ml Inj) 10 mg IV Q6H PRN PRN Reason: Nausea And Vomiting Metoprolol Succinate (Metoprolol Succinate Xl 100 Mg Tab) 100 mg PO QDAY [facility] Miscellaneous Medication (Methadone Hcl [Methadone Intensol]) 30 mg PO QDAY [facility] Nitroglycerin (Nitroglycerin 0.4 Mg Tab Subl) 0.4 mg SL Q5M PRN PRN Reason: Chest Pain Ondansetron HCl (Ondansetron 4 Mg/2 Ml Inj) 4 mg IV Q8H PRN PRN Reason: Nausea And Vomiting Oxycodone/Acetaminophen (Oxycodone /Acetaminophen 5-325mg Tab) 1 tab PO Q6H PRN PRN Reason: Pain, Moderate (4-6) Last Admin: 02/24/21 09:33 Dose: 1 tab Documented by: Senna (Sennosides 8.6 Mg Tab) 8.6 mg PO Q12HR PRN PRN Reason: Constipation Sodium Chloride (Sodium Chloride 0.9% 10 Ml Flush Syringe) 10 ml IV BID [facility] Last Admin: 02/24/21 11:25 Dose: 10 ml Documented by: Sodium Chloride (Sodium Chloride 0.9% 10 Ml Flush Syringe) 10 ml IV PRN PRN PRN Reason: LINE FLUSH Tamsulosin HCl (Tamsulosin 0.4 Mg Cap) 0.4 mg PO QDAY [facility] Tramadol HCl (Tramadol 50 Mg Tab) 50 mg PO Q6H PRN PRN Reason: Pain, Moderate (4-6) Review of Systems All systems: negative (what is specified in HPI) Physical Examination - Vital Signs Vital Signs: Vital Signs Temp Pulse Resp BP Pulse Ox 98.5 F 77 16 120/70 92 02/22/21 20:54 02/22/21 20:54 02/22/21 20:54 02/22/21 20:54 02/22/21 20:54 - Physical Exam Narrative exam: Seen and examined NAD NC/AT RR breathing non-labored abdomen soft no cyanosis or clubbing A&Ox3 CNII-XII intact Motor strength full sensation intact reflexes +2 no drift Results - Laboratory Findings CBC and BMP: 02/24/21 04:40 02/24/21 04:40 Abnormal Lab Findings: Abnormal Labs 02/22/21 02/22/21 02/22/21 21:31 21:31 21:31 Hgb Hct RDW 21.0 H Lymph # (Auto) Seg Neutrophils % D-Dimer Sodium 146 H Potassium 3.3 L BUN 8 L Creatinine 0.6 L Glucose 101 H Calcium 8.1 L Total Protein 6.1 L Albumin 3.3 L Salicylates Acetaminophen Plasma/Serum Alcohol 0.23 H 02/22/21 02/22/21 02/23/21 21:31 21:31 04:45 Hgb Hct RDW Lymph # (Auto) Seg Neutrophils % D-Dimer 1153.93 H Sodium Potassium BUN Creatinine Glucose Calcium Total Protein Albumin Salicylates < 0.3 L Acetaminophen 5.0 L Plasma/Serum Alcohol 02/23/21 02/24/21 02/24/21 05:08 04:40 04:40 Hgb 11.4 L 11.4 L Hct 35.2 L RDW 20.7 H 21.5 H Lymph # (Auto) 1.0 L Seg Neutrophils % 71.8 H D-Dimer Sodium Potassium 3.5 L BUN 6 L Creatinine 0.5 L Glucose Calcium Total Protein 5.5 L Albumin 3.1 L Salicylates Acetaminophen Plasma/Serum Alcohol Assessment and Plan 65 y/o M w/ small tentorial SDH -no surgical intervention -may start prophylactic dvt prophylaxis tomorrow -PT/OT -patient may follow up as needed as an outpatient -please notify if questions/concerns
--- NOTE | 2021-02-24 11:42 | Progress Note ---
Assessment and Plan Alcohol intoxication alcohol level was markedly elevated at 0.23. Reported historyo f PE CT scan of the head reports a small subdural hematoma Eliquis therapy was discontinued Plan: There are no acute cardiac complaints, no acute cardiac issues, will follow intermittently. Subjective Date of service: 02/24/21 Interval history: Patient has no cardiac complaints. Objective Vital Signs Temp Pulse Pulse Pulse Resp BP BP 02/24/21 09:33 18 02/24/21 08:56 02/24/21 08:09 98.3 F 70 18 146/74 02/24/21 04:29 98.4 F 67 18 156/69 02/24/21 00:34 97.8 F 64 18 140/91 02/23/21 23:45 90 02/23/21 23:00 18 02/23/21 19:44 99.2 F 57 L 18 116/57 02/23/21 19:38 89 89 18 02/23/21 15:20 89 02/23/21 12:23 97.8 F 72 17 131/61 Pulse Ox 02/24/21 09:33 02/24/21 08:56 97 02/24/21 08:09 94 02/24/21 04:29 97 02/24/21 00:34 96 02/23/21 23:45 02/23/21 23:00 98 02/23/21 19:44 97 02/23/21 19:38 98 02/23/21 15:20 02/23/21 12:23 97 - Physical Examination General: No Apparent Distress HEENT: Positive: PERRL Neck: Positive: trachea midline Cardiac: Positive: Reg Rate and Rhythm Lungs: Positive: Decreased Breath Sounds Neuro: Positive: Grossly Intact - Labs and Meds Cardiac Enzymes 02/24/21 Range/Units 04:40 AST 21 (5-40) units/L CBC 02/24/21 Range/Units 04:40 WBC 5.5 (4.5-11.0) K/mm3 RBC 3.95 (3.65-5.03) M/mm3 Hgb 11.4 L (11.8-15.2) gm/dl Hct 35.7 (35.5-45.6) % Plt Count 148 (140-440) K/mm3 Lymph # (Auto) 1.0 L (1.2-5.4) K/mm3 [place] # (Auto) 0.4 (0.0-0.8) K/mm3 Eos # (Auto) 0.2 (0.0-0.4) K/mm3 Baso # (Auto) 0.0 (0.0-0.1) K/mm3 Comprehensive Metabolic Panel 02/24/21 Range/Units 04:40 Sodium 138 D (137-145) mmol/L Potassium 3.5 L (3.6-5.0) mmol/L Chloride 102.4 (98-107) mmol/L Carbon Dioxide 25 (22-30) mmol/L BUN 6 L (9-20) mg/dL Creatinine 0.5 L (0.8-1.3) mg/dL Glucose 88 (75-100) mg/dL Calcium 8.4 (8.4-10.2) mg/dL AST 21 (5-40) units/L ALT 19 (7-56) units/L Alkaline Phosphatase 72 (35-129) units/L Total Protein 5.5 L (6.3-8.2) g/dL Albumin 3.1 L (3.9-5) g/dL
--- NOTE | 2021-02-24 11:46 | Progress Note ---
Assessment and Plan Assessment and plan: Chest pain EtOH intoxication/withdrawal Hypokalemia Recent diagnosis of PE Subdural hematoma. 02/24/2021. Repeat CT scan shows stable subdural hemorrhage. However, given the subdural hemorrhage and patient's history of EtOH abuse/intoxication, patient not a candidate for anticoagulation. Pulmonary consultation requested for other options. Consultation with IR for possible IVC filter placement. History Interval history: No new issues overnight Hospitalist Physical - Constitutional Vitals: Temp Pulse Resp BP Pulse Ox 98.3 F 70 18 146/74 97 02/24/21 08:09 02/24/21 08:09 02/24/21 09:33 02/24/21 08:09 02/24/21 08:56 General appearance: Present: no acute distress - EENT Eyes: Present: PERRL, EOM intact ENT: hearing intact, clear oral mucosa, dentition normal - Neck Neck: Present: supple, normal ROM - Respiratory Respiratory effort: normal Respiratory: bilateral: CTA - Cardiovascular Rhythm: regular Heart Sounds: Present: S1 & S2. Absent: gallop, rub - Extremities Extremities: no ischemia, No edema, Full ROM - Abdominal General gastrointestinal: soft, non-tender, non-distended, normal bowel sounds - Integumentary Integumentary: Present: clear, warm, dry - Neurologic Neurologic: CNII-XII intact, moves all extremities HEART Score - HEART Score EKG: Non-specific Age: 45-65 Risk factors: > 3 risk factors or hx of atherosclerotic disease (Hypertension, high cholesterol, tobacco user, obesity) Troponin: Troponin T < 0.010 ng/mL (0.00-0.029) 02/23/21 04:45 Troponin: < normal limit - Critical Actions Critical Actions: 4-6 pts:12-16.6% risk of adverse cardiac event. Should be admitted Results - Labs CBC & Chem 7: 02/24/21 04:40 02/24/21 04:40 Labs: Laboratory Last Values WBC 5.5 K/mm3 (4.5-11.0) 02/24/21 04:40 RBC 3.95 M/mm3 (3.65-5.03) 02/24/21 04:40 Hgb 11.4 gm/dl (11.8-15.2) L 02/24/21 04:40 Hct 35.7 % (35.5-45.6) 02/24/21 04:40 MCV 91 fl (84-94) 02/24/21 04:40 MCH 29 pg (28-32) 02/24/21 04:40 MCHC 32 % (32-34) 02/24/21 04:40 RDW 21.5 % (13.2-15.2) H 02/24/21 04:40 Plt Count 148 K/mm3 (140-440) 02/24/21 04:40 Lymph % (Auto) 18.4 % (13.4-35.0) 02/24/21 04:40 [place] % (Auto) 6.5 % (0.0-7.3) 02/24/21 04:40 Eos % (Auto) 2.9 % (0.0-4.3) 02/24/21 04:40 Baso % (Auto) 0.4 % (0.0-1.8) 02/24/21 04:40 Lymph # (Auto) 1.0 K/mm3 (1.2-5.4) L 02/24/21 04:40 [place] # (Auto) 0.4 K/mm3 (0.0-0.8) 02/24/21 04:40 Eos # (Auto) 0.2 K/mm3 (0.0-0.4) 02/24/21 04:40 Baso # (Auto) 0.0 K/mm3 (0.0-0.1) 02/24/21 04:40 Seg Neutrophils % 71.8 % (40.0-70.0) H 02/24/21 04:40 Seg Neutrophils # 4.0 K/mm3 (1.8-7.7) 02/24/21 04:40 PT 13.4 Sec. (12.2-14.9) 02/22/21 21:31 INR 0.92 (0.87-1.13) 02/22/21 21:31 D-Dimer 1153.93 ng/mlDDU (0-234) H 02/23/21 04:45 Sodium 138 mmol/L (137-145) D 02/24/21 04:40 Potassium 3.5 mmol/L (3.6-5.0) L 02/24/21 04:40 Chloride 102.4 mmol/L (98-107) 02/24/21 04:40 Carbon Dioxide 25 mmol/L (22-30) 02/24/21 04:40 Anion Gap 14 mmol/L 02/24/21 04:40 BUN 6 mg/dL (9-20) L 02/24/21 04:40 Creatinine 0.5 mg/dL (0.8-1.3) L 02/24/21 04:40 Estimated GFR > 60 ml/min 02/24/21 04:40 BUN/Creatinine Ratio 12 % 02/24/21 04:40 Glucose 88 mg/dL (75-100) 02/24/21 04:40 Calcium 8.4 mg/dL (8.4-10.2) 02/24/21 04:40 Magnesium 1.70 mg/dL (1.7-2.3) 02/22/21 21:31 Total Bilirubin 0.70 mg/dL (0.1-1.2) 02/24/21 04:40 AST 21 units/L (5-40) 02/24/21 04:40 ALT 19 units/L (7-56) 02/24/21 04:40 Alkaline Phosphatase 72 units/L (35-129) 02/24/21 04:40 Total Creatine Kinase 65 units/L (55-170) 02/22/21 21:31 Troponin T < 0.010 ng/mL (0.00-0.029) 02/23/21 04:45 Total Protein 5.5 g/dL (6.3-8.2) L 02/24/21 04:40 Albumin 3.1 g/dL (3.9-5) L 02/24/21 04:40 Albumin/Globulin Ratio 1.3 % 02/24/21 04:40 Lipase 21 units/L (13-60) 02/22/21 21:31 Urine Color Katerina (Yellow) 02/23/21 01:01 Urine Turbidity Slightly-cloudy (Clear) 02/23/21 01:01 Urine pH 6.0 (5.0-7.0) 02/23/21 01:01 Ur Specific [place] 1.016 (1.003-1.030) 02/23/21 01:01 Urine Protein <15 mg/dl mg/dL (Negative) 02/23/21 01:01 Urine Glucose (UA) Neg mg/dL (Negative) 02/23/21 01:01 Urine Ketones Neg mg/dL (Negative) 02/23/21 01:01 Urine Blood Neg (Negative) 02/23/21 01:01 Urine Nitrite Neg (Negative) 02/23/21 01:01 Urine Bilirubin Neg (Negative) 02/23/21 01:01 Urine Urobilinogen 4.0 mg/dL (<2.0) 02/23/21 01:01 Ur Leukocyte Esterase Neg (Negative) 02/23/21 01:01 Urine WBC (Auto) 5.0 /HPF (0.0-6.0) 02/23/21 01:01 Urine RBC (Auto) 2.0 /HPF (0.0-6.0) 02/23/21 01:01 U Epithel Cells (Auto) 1.0 /HPF (0-13.0) 02/23/21 01:01 Urine Bacteria (Auto) 1+ /HPF (Negative) 02/23/21 01:01 Urine Mucus 1+ /HPF 02/23/21 01:01 Salicylates < 0.3 mg/dL (2.8-20.0) L 02/22/21 21:31 Acetaminophen 5.0 ug/mL (10.0-30.0) L 02/22/21 21:31 Plasma/Serum Alcohol 0.23 % (0-0.07) H 02/22/21 21:31 العلي/IV: Voiding Method Toilet Active Medications - Current Medications Current Medications: Generic Name Dose Route Start Last Admin Trade Name Freq PRN Reason Stop Dose Admin Acetaminophen 650 mg 02/23/21 04:57 Acetaminophen 325 Mg Tab PO Q4H PRN Pain MILD(1-3)/Fever >100.5/ISAACS Aspirin 325 mg 02/24/21 10:00 02/24/21 09:35 Aspirin Ec 325 Mg Tab PO 325 mg QDAY [facility] Administration Atorvastatin Calcium 40 mg 02/23/21 22:00 02/23/21 21:09 Atorvastatin 40 Mg Tab PO 40 mg QHS [facility] Administration Atorvastatin Calcium 40 mg 02/24/21 22:00 Atorvastatin 40 Mg Tab PO QHS [facility] Chlordiazepoxide HCl 25 mg 02/24/21 22:00 Chlordiazepoxide 25 Mg Cap PO HS [facility] Fluoxetine HCl 10 mg 02/25/21 10:00 Fluoxetine 10 Mg Tab PO QDAY [facility] Furosemide 40 mg 02/25/21 10:00 Furosemide 40 Mg Tab PO QDAY [facility] Haloperidol Lactate 5 mg 02/22/21 21:19 Haloperidol Lactate 5 Mg/1 Ml Inj IM Q6HR PRN Agitation Haloperidol Lactate 5 mg 02/23/21 06:57 Haloperidol Lactate 5 Mg/1 Ml Inj IV Q1H PRN Unrespon. to mult. doses BZD's Sodium Chloride 1,000 mls @ 42 mls/hr 02/23/21 05:00 Nacl 0.9% 1000 Ml IV DIRECT [facility] Folic Acid 1 mg/ Multivitamins 1,000 mls @ 125 mls/hr 02/23/21 07:30 02/24/21 09:33 /Minerals 10 ml/ Thiamine HCl IV 125 mls/hr 100 mg/ Sodium Chloride .BY DURATION [facility] Administration Sodium Chloride 1,000 mls @ 125 mls/hr 02/23/21 07:30 02/24/21 00:59 Nacl 0.9% 1000 Ml IV Not Given .BY DURATION [facility] Lorazepam 2 mg 02/23/21 07:00 Lorazepam 2 Mg/Ml Vial IV Q1H PRN CIWA-Ar 8-15 Lorazepam 4 mg 02/23/21 07:00 Lorazepam 2 Mg/Ml Vial IV Q15MIN PRN CIWA-Ar >25 Lorazepam 4 mg 02/23/21 07:00 Lorazepam 2 Mg/Ml Vial IV Q1H PRN CIWA-Ar 16-25 Magnesium Hydroxide 30 ml 02/23/21 04:57 Magnesium Hydroxide (Mom) Oral Liqd Udc PO Q4H PRN Constipation Metoclopramide HCl 10 mg 02/23/21 04:57 Metoclopramide 10 Mg/2 Ml Inj IV Q6H PRN Nausea And Vomiting Metoprolol Succinate 100 mg 02/25/21 10:00 Metoprolol Succinate Xl 100 Mg Tab PO QDAY [facility] Miscellaneous Medication 30 mg 02/25/21 10:00 Methadone Hcl [Methadone Intensol] PO QDAY [facility] Nitroglycerin 0.4 mg 02/23/21 04:57 Nitroglycerin 0.4 Mg Tab Subl SL Q5M PRN Chest Pain Ondansetron HCl 4 mg 02/23/21 04:57 Ondansetron 4 Mg/2 Ml Inj IV Q8H PRN Nausea And Vomiting Oxycodone/Acetaminophen 1 tab 02/23/21 04:57 02/24/21 09:33 Oxycodone /Acetaminophen 5-325mg Tab PO 1 tab Q6H PRN Administration Pain, Moderate (4-6) Senna 8.6 mg 02/23/21 04:57 Sennosides 8.6 Mg Tab PO Q12HR PRN Constipation Sodium Chloride 10 ml 02/23/21 10:00 02/24/21 11:25 Sodium Chloride 0.9% 10 Ml Flush Syringe IV 10 ml BID [facility] Administration Sodium Chloride 10 ml 02/23/21 04:57 Sodium Chloride 0.9% 10 Ml Flush Syringe IV PRN PRN LINE FLUSH Tamsulosin HCl 0.4 mg 02/25/21 10:00 Tamsulosin 0.4 Mg Cap PO QDAY [facility] Tramadol HCl 50 mg 02/23/21 04:57 Tramadol 50 Mg Tab PO Q6H PRN Pain, Moderate (4-6) Nutrition/Malnutrition Assess - Dietary Evaluation Nutrition/Malnutrition Findings: Nutrition Notes Start: 02/23/21 15:17 Freq: Status: Active Protocol: Document 02/23/21 15:17 MADONNA (Rec: 02/23/21 15:35 MADONNA [id number]) Nutrition Notes Need for Assessment generated from: MST Initial or Follow up Assessment Current Diagnosis Diabetes,Hypertension, Hyperlipidemia Other Pertinent Diagnosis Chest pain, Alcohol intoxication. Current Diet NPO (from B 02/24). Labs/Tests 02/22: Na 146, K 3.3, BUN 8, Cr 0.6, Glu 101, Ca 8.1, T por 6.1, Alb 3.3. Pertinent Medications 02/23: Folic acid, Multyvitamin, Thiamine, others nutritionally unremarkable. Height 5 ft 11 in Weight 97.522 kg [place] Body Weight (kg) 78.18 BMI 29.9 Weight Status Overweight Percent of energy/protein needs met: Prescribed NPO. Burn Absent Trauma Absent GI Symptoms None Food Allergy No Skin Integrity/Comment Clear, warm, dry. Current % PO Other Minimum of two criteria No physical signs of malnutrition #1 Nutrition Diagnosis No nutrition diagnosis at this time Comments: Pt does not present signs of risk or concern for malnutrition at the time. Is patient on ventilator? No Is Patient Ambulatory and/or Out of Bed Yes REE-([place] or-ambulatory/OOB) [ 4923.555 [id number]] Kcal/Kg value to use for calculation 21 Approximate Energy Requirements Using 2047 kcal/Kg Calculation Used for Recommendations Kcal/kg Additional Notes Protein: 0.8-1.0 g/Kg/day; 62- 78 g/day; 248-312 Kcal/day ( from IBW). Fluids: 1.0 ml/Kcal/day, or as per MD. Nutrition Intervention Change Diet Order: Continue NPO as per MD. Goal #1 Maintain body weight within +/ -3% of current BWt during LOS. Goal #2 Reach and maintain acceptable chemistry lab values during LOS. Follow-Up By: 03/02/21 Additional Comments Continue monitoring Hydration and BM, when pertinent, food tolerance and %PO intake of meals.
[2021-02-24] MEDS: traMADol 50 MG TAB PO PRN ×2 (16:10→21:10)
--- NOTE | 2021-02-24 17:40 | Consultation ---
History of Present Illness - Reason for Consult Consult date: 02/24/21 IVC Filter Insertion Requesting physician: CARMINA LEUNG - History of Present Illness The patient is a 65-year-old male who was brought into the emergency department by EMS 2 days ago while he was intoxicated. At that time he was complaining of some vague chest pain and had no recollection of the events leading to his need for emergency care. On my evaluation today the patient states that he was working on a vehicle and believes a transmission may have fallen and hit him on the head. His evaluation in the emergency room included a CT scan of his head that demonstrated a small subdural hematoma without mass-effect. Review of his medications revealed that he was on Eliquis 5 mg p.o. 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 He states that he was told the clot was small and that this would treat the clot. He is unsure how long he was to remain on the blood thinner. He denies any shortness of breath or chest pain at this time. He does state that he smokes at least a pack per day and does drink daily however he has no additional complaints at this time. Past History Past Medical History: diabetes, hypertension, hyperlipidemia, pulmonary embolism (Reported PE), other (Subdural hematoma) Past Surgical History: No surgical history Social history: smoking, alcohol abuse, full code Family history: no significant family history (Patient is confused unable to assess) Medications and Allergies Allergies Allergy/AdvReac Type Severity Reaction Status Date / Time No Known Allergies Allergy Verified 02/22/21 20:53 Home Medications Medication Instructions Recorded Confirmed Last Taken Type Apixaban [Eliquis] 5 mg PO BID 02/23/21 02/23/21 02/22/21 History Aspirin [Adult Aspirin] 81 mg PO QDAY 02/23/21 02/23/21 02/22/21 History AtorvaSTATin [Lipitor] 40 mg PO QHS 02/23/21 02/23/21 02/22/21 History FLUoxetine HCL [Fluoxetine HCl] 10 mg PO QDAY 02/23/21 02/23/21 Unknown History Furosemide [Lasix TAB] 40 mg PO QDAY 02/23/21 02/23/21 Unknown History Ibuprofen [Ibu-200] 200 mg PO PRN PRN 02/23/21 02/23/21 02/19/21 History Methadone HCl [Methadone Intensol] 30 mg PO QDAY 02/23/21 02/23/21 02/22/21 History Metoprolol Xl [Metoprolol 100 mg PO QDAY 02/23/21 02/23/21 02/22/21 History SUCCINATE ER TAB] Ondansetron [Zofran Odt] 4 mg PO Q8HR PRN 02/23/21 02/23/21 02/18/21 History Oxymetazoline HCl [12 Hour Nasal 1 spray NS HS 02/23/21 02/23/21 02/22/21 History Relief] Tamsulosin [Flomax] 0.4 mg PO QDAY 02/23/21 02/23/21 02/22/21 History chlordiazePOXIDE [Librium] 25 mg PO HS 02/23/21 02/23/21 Unknown History Active Meds: Active Medications Acetaminophen (Acetaminophen 325 Mg Tab) 650 mg PO Q4H PRN PRN Reason: Pain MILD(1-3)/Fever >100.5/ISAACS Aspirin (Aspirin Ec 325 Mg Tab) 325 mg PO QDAY [facility] Last Admin: 02/24/21 09:35 Dose: 325 mg Documented by: Atorvastatin Calcium (Atorvastatin 40 Mg Tab) 40 mg PO QHS CHERISE Chlordiazepoxide HCl (Chlordiazepoxide 25 Mg Cap) 25 mg PO HS CHERISE Fluoxetine HCl (Fluoxetine 10 Mg Tab) 10 mg PO QDAY CHERISE Furosemide (Furosemide 40 Mg Tab) 40 mg PO QDAY [facility] Haloperidol Lactate (Haloperidol Lactate 5 Mg/1 Ml Inj) 5 mg IV Q1H PRN PRN Reason: Unrespon. to mult. doses BZD's Sodium Chloride (Nacl 0.9% 1000 Ml) 1,000 mls @ 42 mls/hr IV DIRECT CHERISE Folic Acid 1 mg/ Multivitamins /Minerals 10 ml/ Thiamine HCl 100 mg/ Sodium Ch loride 1,000 mls @ 125 mls/hr IV .BY DURATION [facility] Last Admin: 02/24/21 09:33 Dose: 125 mls/hr Documented by: Sodium Chloride (Nacl 0.9% 1000 Ml) 1,000 mls @ 125 mls/hr IV .BY DURATION [facility] Last Admin: 02/24/21 00:59 Dose: Not Given Documented by: Lorazepam (Lorazepam 2 Mg/Ml Vial) 2 mg IV Q1H PRN PRN Reason: CIWA-Ar 8-15 Lorazepam (Lorazepam 2 Mg/Ml Vial) 4 mg IV Q15MIN PRN PRN Reason: CIWA-Ar >25 Lorazepam (Lorazepam 2 Mg/Ml Vial) 4 mg IV Q1H PRN PRN Reason: CIWA-Ar 16-25 Magnesium Hydroxide (Magnesium Hydroxide (Mom) Oral Liqd Udc) 30 ml PO Q4H PRN PRN Reason: Constipation Methadone HCl (Methadone 10 Mg Tab) 30 mg PO DAILY [facility] Metoclopramide HCl (Metoclopramide 10 Mg/2 Ml Inj) 10 mg IV Q6H PRN PRN Reason: Nausea And Vomiting Metoprolol Succinate (Metoprolol Succinate Xl 100 Mg Tab) 100 mg PO QDAY [facility] Nitroglycerin (Nitroglycerin 0.4 Mg Tab Subl) 0.4 mg SL Q5M PRN PRN Reason: Chest Pain Ondansetron HCl (Ondansetron 4 Mg/2 Ml Inj) 4 mg IV Q8H PRN PRN Reason: Nausea And Vomiting Oxycodone/Acetaminophen (Oxycodone /Acetaminophen 5-325mg Tab) 1 tab PO Q6H PRN PRN Reason: Pain, Moderate (4-6) Last Admin: 02/24/21 09:33 Dose: 1 tab Documented by: Senna (Sennosides 8.6 Mg Tab) 8.6 mg PO Q12HR PRN PRN Reason: Constipation Sodium Chloride (Sodium Chloride 0.9% 10 Ml Flush Syringe) 10 ml IV BID [facility] Last Admin: 02/24/21 11:25 Dose: 10 ml Documented by: Sodium Chloride (Sodium Chloride 0.9% 10 Ml Flush Syringe) 10 ml IV PRN PRN PRN Reason: LINE FLUSH Tamsulosin HCl (Tamsulosin 0.4 Mg Cap) 0.4 mg PO QDAY [facility] Tramadol HCl (Tramadol 50 Mg Tab) 50 mg PO Q6H PRN PRN Reason: Pain, Moderate (4-6) Last Admin: 02/24/21 16:10 Dose: 50 mg Documented by: Review of Systems All systems: negative Exam - Constitutional Vitals: Temp Pulse Resp BP Pulse Ox 97.7 F 76 18 135/51 100 02/24/21 13:22 02/24/21 13:22 02/24/21 13:22 02/24/21 13:22 02/24/21 16:22 General appearance: Present: no acute distress - Respiratory Respiratory effort: normal - Cardiovascular Rhythm: regular - Extremities Extremities: pulses intact (Palpable pedal pulses bilaterally), No edema, abnormal (Ecchymosis on the plantar surface of bilateral feet) - Abdominal General gastrointestinal: Present: soft, non-tender, non-distended Male genitourinary: Present: deferred - Rectal Rectal Exam: deferred - Musculoskeletal Musculoskeletal: strength equal bilaterally Results - Labs CBC & Chem 7: 02/24/21 04:40 02/24/21 04:40 Labs: Abnormal lab results 02/24/21 02/24/21 Range/Units 04:40 04:40 Hgb 11.4 L (11.8-15.2) gm/dl RDW 21.5 H (13.2-15.2) % Lymph # (Auto) 1.0 L (1.2-5.4) K/mm3 Seg Neutrophils % 71.8 H (40.0-70.0) % Potassium 3.5 L (3.6-5.0) mmol/L BUN 6 L (9-20) mg/dL Creatinine 0.5 L (0.8-1.3) mg/dL Total Protein 5.5 L (6.3-8.2) g/dL Albumin 3.1 L (3.9-5) g/dL - Imaging and Cardiology CT scan - abdomen: image reviewed CT scan - chest: image reviewed (No evidence of pulmonary embolus) Assessment and Plan The patient is a 65-year-old male with a history of alcohol abuse and a report of a pulmonary embolus that he states discovered 3 to 4 weeks ago at [facility]. He was started on Eliquis 5 mg p.o. twice daily for treatment of the pulmonary embolus. Upon admission here his D-dimer is 1100 and although this is elevated this is not extremely high and given his recent trauma and being found down is not unexpected. The patient had a pulmonary perfusion scan that was low probability for a pulmonary embolus followed by a CT a of the chest that did not demonstrate a pulmonary embolus. He is also maintaining his oxygen saturations in the high 90s to 100% on room air and has no other indications that he has a pulmonary embolus. At this point I would recommend a venous duplex of his bilateral lower extremities. If he has a DVT, given the subdural hematoma and the risk of further bleeding on full dose anticoagulation, that would be an indication for an IVC filter however if there is no evidence of a DVT then I would not recommend placing an IVC filter at this time.
--- NOTE | 2021-02-24 17:50 | Electrocardiograph Report ---
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
--- NOTE | 2021-02-24 17:51 | Electrocardiograph Report ---
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
[2021-02-24] MEDS ORDERED: chlordiazePOXIDE 25 MG CAP PO SCH (22:00)
[2021-02-25] MEDS: 1: FOLIC ACID 1 MG, MULTIPLE VITAMIN INJ, ADULT 10 ML, THIAMINE 100 MG in SODIUM CHLORID IV SCH ×2 (04:32→10:05)
[2021-02-25] MEDS: oxyCODONE /ACETAMINOPHEN 5-325MG TAB PO PRN (07:48)
--- NOTE | 2021-02-25 09:05 | Discharge Summary ---
Providers - Providers Date of Admission: 02/24/21 14:38 Date of discharge: 02/25/21 Attending physician: CARMINA LEUNG 02/23/21 Consult to Cardiac Rehabilitation [CONS] Routine Reason For Exam: Phase I 02/23/21 04:57 Consult to Physician [CONS] Routine Comment: Consulting Provider: NORMAN SOSA Physician Instructions: Reason For Exam: chest pain 02/23/21 09:26 Consult to Physician [CONS] Stat Comment: Consulting Provider: MELBA MALONE II Physician Instructions: Reason For Exam: Subdural hematoma. 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 At that time he was complaining of some vague chest pain and had no recollection of the events leading to his need for emergency care. Later in the hospitalization after admission, patient stated that he was working on a vehicle and believes a transmission may have fallen and hit him on the head. His evaluation in the emergency room included a CT scan of his head that demonstrated a small subdural hematoma without mass-effect. The patient was seen by neurosurgery in consultation who recommended follow-up CT scan which revealed stable subdural hematoma. Neurosurgery recommended no further intervention. Patient's mental status remained stable throughout hospitalization and at baseline. Review of his medications revealed that he was on Eliquis 5 mg p.o. twice daily at the time of his admission. The patient report that 3 to 4 weeks ago he was started on Eliquis secondary to a diagnosis of a pulmonary embolism. The patient had a pulmonary perfusion scan that was low probability for a pulmonary embolus followed by a CT a of the chest that did not demonstrate a pulmonary embolus. He is also maintaining his oxygen saturations in the high 90s to 100% on room air and has no other indications that he has a pulmonary embolus. The patient was seen by vascular surgery in consultation who recommended venous duplex of his bilateral lower extremities. If he has a DVT, given the subdural hematoma and the risk of further bleeding on full dose anticoagulation, that would be an indication for an IVC filter however if there is no evidence of a DVT then I would not recommend placing an IVC filter at this time. Cardiology also saw the patient in consultation and reported EKG showed no ST-T wave changes, serial troponin levels x3 were negative and recommended no further intervention for chest pain. Therefore, patient is felt to have received maximal hospital benefit and will be discharged home. Dedicated discharge time 44 minutes Disposition: HOME / SELF CARE / HOMELESS Final Discharge Diagnosis (Prints w/discharge instructions): Chest pain etiology likely secondary to GERD, small tentorial SDH requiring no surgical intervention, EtOH intoxication/withdrawal, hypokalemia, recent diagnosis of PE. Core Measure Documentation - Palliative Care Palliative Care/ Comfort Measures: Not Applicable - Core Measures Any of the following diagnoses?: none Exam - Constitutional Vitals: Temp Pulse Resp BP Pulse Ox 97.8 F 87 20 168/77 96 02/25/21 07:00 02/25/21 07:00 02/25/21 07:00 02/25/21 07:00 02/25/21 08:13 General appearance: Present: no acute distress, well-nourished - EENT Eyes: Present: PERRL ENT: hearing intact, clear oral mucosa - Neck Neck: Present: supple, normal ROM - Respiratory Respiratory effort: normal Respiratory: bilateral: CTA - Cardiovascular Heart Sounds: Present: S1 & S2. Absent: rub, click - Extremities Extremities: pulses symmetrical, No edema Peripheral Pulses: within normal limits - Abdominal General gastrointestinal: Present: soft, non-tender, non-distended, normal bowel sounds Male genitourinary: Present: normal - Integumentary Integumentary: Present: clear, warm, dry - Musculoskeletal Musculoskeletal: gait normal, strength equal bilaterally - Psychiatric Psychiatric: appropriate mood/affect, intact judgment & insight - Neurologic Neurologic: CNII-XII intact, moves all extremities Plan Activity: advance as tolerated Weight Bearing Status: Weight Bear as Tolerated Diet: regular Follow up with: PRIMARY CARE, [Primary Care Provider] - 3-5 Days Prescriptions: Methadone [Dolophine] 30 mg PO DAILY #5 tablet Tamsulosin [Flomax] 0.4 mg PO QDAY #30 cap FLUoxetine HCL [Fluoxetine HCl] 10 mg PO QDAY #30 cap Furosemide [Lasix TAB] 40 mg PO QDAY #30 chlordiazePOXIDE [Librium] 25 mg PO HS #42 cap AtorvaSTATin [Lipitor] 40 mg PO QHS #30 Metoprolol Xl [Metoprolol SUCCINATE ER TAB] 100 mg PO QDAY #30
[2021-02-25] MEDS ORDERED: FUROSEMIDE 40 MG TAB PO SCH (10:00)
[2021-02-25] MEDS ORDERED: TAMSULOSIN 0.4 MG CAP PO SCH (10:00)
[2021-02-25] MEDS ORDERED: METHADONE 10 MG TAB PO SCH (10:00)
[2021-02-25] MEDS ORDERED: METHADONE HCL 10 MG/ML PO SCH (10:00)
[2021-02-25] MEDS ORDERED: FLUoxetine 10 MG TAB PO SCH (10:00)
[2021-02-25] MEDS ORDERED: METOPROLOL SUCCINATE XL 100 MG TAB PO SCH (10:00)
[2021-02-25] MEDS: ASPIRIN EC 325 MG TAB PO SCH (10:02)
[2021-02-25 11:28] VITALS: BP 123/53
--- NOTE | 2021-02-25 12:38 | Progress Note ---
Assessment and Plan Vascular ultrasound images reviewed. No evidence of DVT in bilateral lower extremities. The patient will not need placement of an IVC filter during this admission. Okay to discharge home from a vascular standpoint. Follow-up in our office in 2 weeks. Subjective Date of service: 02/25/21 Interval history: Patient with no complaints at time of examination. Objective - Constitutional Vitals: Vital Signs - 12hr 02/25/21 02/25/21 02/25/21 03:43 07:00 08:13 Temperature 98.9 F 97.8 F Pulse Rate 64 87 Respiratory 18 20 Rate Blood Pressure 136/58 Blood Pressure 168/77 [Left] O2 Sat by Pulse 96 96 96 Oximetry 02/25/21 02/25/21 09:16 11:20 Temperature 97.9 F Pulse Rate 62 Respiratory 20 Rate Blood Pressure 123/53 Blood Pressure [Left] O2 Sat by Pulse 96 97 Oximetry General appearance: Present: no acute distress - EENT Eyes: EOM intact ENT: hearing intact - Neck Neck: supple - Respiratory Respiratory effort: normal - Gastrointestinal General gastrointestinal: Present: deferred Rectal Exam: deferred - Genitourinary Male genitourinary: deferred - Labs CBC & Chem 7: 02/24/21 04:40 02/24/21 04:40 Medications & Allergies - Medications Allergies/Adverse Reactions: Allergies No Known Allergies Allergy (Verified 02/22/21 20:53) Home Medications: Home Medications Medication Instructions Recorded Confirmed Last Taken Type Methadone HCl [Methadone Intensol] 30 mg PO QDAY 02/23/21 02/23/21 02/22/21 History AtorvaSTATin [Lipitor] 40 mg PO QHS #30 02/25/21 Unknown Rx FLUoxetine HCL [Fluoxetine HCl] 10 mg PO QDAY #30 cap 02/25/21 Unknown Rx Furosemide [Lasix TAB] 40 mg PO QDAY #30 02/25/21 Unknown Rx Methadone [Dolophine] 30 mg PO DAILY #5 tablet 02/25/21 Unknown Rx Metoprolol Xl [Metoprolol 100 mg PO QDAY #30 02/25/21 Unknown Rx SUCCINATE ER TAB] Tamsulosin [Flomax] 0.4 mg PO QDAY #30 cap 02/25/21 Unknown Rx chlordiazePOXIDE [Librium] 25 mg PO HS #42 cap 02/25/21 Unknown Rx Active Medications: Generic Name Dose Route Start Last Admin Trade Name Freq PRN Reason Stop Dose Admin Acetaminophen 650 mg 02/23/21 04:57 Acetaminophen 325 Mg Tab PO Q4H PRN Pain MILD(1-3)/Fever >100.5/ISAACS Aspirin 325 mg 02/24/21 10:00 02/25/21 10:02 Aspirin Ec 325 Mg Tab PO 325 mg QDAY CHERISE Administration Atorvastatin Calcium 40 mg 02/24/21 22:00 02/24/21 21:35 Atorvastatin 40 Mg Tab PO 40 mg QHS CHERISE Administration Chlordiazepoxide HCl 25 mg 02/24/21 22:00 02/24/21 21:36 Chlordiazepoxide 25 Mg Cap PO 25 mg HS CHERISE Administration Fluoxetine HCl 10 mg 02/25/21 10:00 02/25/21 10:02 Fluoxetine 10 Mg Tab PO 10 mg QDAY CHERISE Administration Furosemide 40 mg 02/25/21 10:00 02/25/21 10:02 Furosemide 40 Mg Tab PO 40 mg QDAY CHERISE Administration Haloperidol Lactate 5 mg 02/23/21 06:57 Haloperidol Lactate 5 Mg/1 Ml Inj IV Q1H PRN Unrespon. to mult. doses BZD's Sodium Chloride 1,000 mls @ 42 mls/hr 02/23/21 05:00 Nacl 0.9% 1000 Ml IV DIRECT CHERISE Folic Acid 1 mg/ Multivitamins 1,000 mls @ 125 mls/hr 02/23/21 07:30 02/25/21 10:05 /Minerals 10 ml/ Thiamine HCl IV 125 mls/hr 100 mg/ Sodium Chloride .BY DURATION CHERISE Administration Sodium Chloride 1,000 mls @ 125 mls/hr 02/23/21 07:30 02/25/21 04:32 Nacl 0.9% 1000 Ml IV Not Given .BY DURATION CHERISE Lorazepam 2 mg 02/23/21 07:00 Lorazepam 2 Mg/Ml Vial IV Q1H PRN CIWA-Ar 8-15 Lorazepam 4 mg 02/23/21 07:00 Lorazepam 2 Mg/Ml Vial IV Q15MIN PRN CIWA-Ar >25 Lorazepam 4 mg 02/23/21 07:00 Lorazepam 2 Mg/Ml Vial IV Q1H PRN CIWA-Ar 16-25 Magnesium Hydroxide 30 ml 02/23/21 04:57 Magnesium Hydroxide (Mom) Oral Liqd Udc PO Q4H PRN Constipation Methadone HCl 30 mg 02/25/21 10:00 02/25/21 10:02 Methadone 10 Mg Tab PO 30 mg DAILY CHERISE Administration Metoclopramide HCl 10 mg 02/23/21 04:57 Metoclopramide 10 Mg/2 Ml Inj IV Q6H PRN Nausea And Vomiting Metoprolol Succinate 100 mg 02/25/21 10:00 02/25/21 10:02 Metoprolol Succinate Xl 100 Mg Tab PO 100 mg QDAY CHERISE Administration Nitroglycerin 0.4 mg 02/23/21 04:57 Nitroglycerin 0.4 Mg Tab Subl SL Q5M PRN Chest Pain Ondansetron HCl 4 mg 02/23/21 04:57 Ondansetron 4 Mg/2 Ml Inj IV Q8H PRN Nausea And Vomiting Oxycodone/Acetaminophen 1 tab 02/23/21 04:57 02/25/21 07:48 Oxycodone /Acetaminophen 5-325mg Tab PO 1 tab Q6H PRN Administration Pain, Moderate (4-6) Senna 8.6 mg 02/23/21 04:57 Sennosides 8.6 Mg Tab PO Q12HR PRN Constipation Sodium Chloride 10 ml 02/23/21 10:00 02/25/21 10:03 Sodium Chloride 0.9% 10 Ml Flush Syringe IV 10 ml BID CHERISE Administration Sodium Chloride 10 ml 02/23/21 04:57 Sodium Chloride 0.9% 10 Ml Flush Syringe IV PRN PRN LINE FLUSH Tamsulosin HCl 0.4 mg 02/25/21 10:00 02/25/21 10:02 Tamsulosin 0.4 Mg Cap PO 0.4 mg QDAY CHERISE Administration Tramadol HCl 50 mg 02/23/21 04:57 02/24/21 21:10 Tramadol 50 Mg Tab PO 50 mg Q6H PRN Administration Pain, Moderate (4-6) HEART Score - HEART Score EKG: Non-specific Age: 45-65 Risk factors: > 3 risk factors or hx of atherosclerotic disease (Hypertension, high cholesterol, tobacco user, obesity) Troponin: Troponin T < 0.010 ng/mL (0.00-0.029) 02/23/21 04:45 Troponin: < normal limit - Critical Actions Critical Actions: 4-6 pts:12-16.6% risk of adverse cardiac event. Should be admitted
--- NOTE | 2021-02-25 13:49 | Vascular Lab Report ---
DUPLEX DOPPLER LOWER EXTREMITY VEINS, BILATERAL INDICATION / CLINICAL INFORMATION: Bilateral lower extremity pain and swelling. TECHNIQUE: Duplex doppler imaging was performed through the veins of both lower extremities using venous jamie edvin and other maneuvers. COMPARISON: None available. FINDINGS: RIGHT COMMON FEMORAL VEIN: Negative. RIGHT FEMORAL VEIN: Negative. RIGHT POPLITEAL VEIN: Negative. RIGHT CALF VEINS: Negative. LEFT COMMON FEMORAL VEIN: Negative. LEFT FEMORAL VEIN: Negative. LEFT POPLITEAL VEIN: Negative. LEFT CALF VEINS: Negative. ADDITIONAL FINDINGS: None. IMPRESSION: 1. No sonographic evidence for DVT in either lower extremity. Signer Name: Vincent Bonilla MD Signed: 02/25/2021 1:45 PM Workstation Name: [id number]
== END 2021-02-25 14:32 | disposition home or self-care (01) | DRG 66 ==
LOC: ED 20:39 → 4A 02-23 04:57 → OBSVTOIN 02-24 14:38 → EDBD 02-24 14:38
PROVIDERS: ADMIT Internal Medicine Geriatric Medicine; ATTEND Hospitalist
DX: I62.00 Nontraumatic subdural hemorrhage, unspecified (principal); K21.9 Gastro-esophageal reflux disease without esophagitis; F10.129 Alcohol abuse with intoxication, unspecified; E87.6 Hypokalemia; E11.9 Type 2 diabetes mellitus without complications; E78.5 Hyperlipidemia, unspecified
CPT/HCPCS: 36415; 70450; 71045; 71260; 72125; 74177; 78580; 80053; 80320; 81001; 82550; 83690; 83735; 84484; 85025; 85379; 85610; 93005; 93970; 94760; 99406; G0378; A9270-GY; A9540; G0480; J3411; J3480; J7030; J7120; Q9967